=== PATIENT | female | born 2000 | race Hispanic/Latino ===

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

== ENCOUNTER 2022-09-14 04:56 | Inpatient (IN) | payer OTHER ==
[~2022-09-14 04:56] MED LIST: BUTORPHANOL 1 MG/ML INJ IV PRN; PROMETHAZINE INJ 25 MG/ML AMP IM PRN; Ringers Lactate 1,000 ML IV PRN; Ringers Lactate 1,000 ML IV SCH
[2022-09-14] MEDS ORDERED: CARBOPROST TROME 250 MCG/ML IM PRN (05:00)
[2022-09-14] MEDS ORDERED: OXYTOCIN/LR 20 UNIT/1,000 ML BAG IV SCH ×2 (05:00→12:00)
[2022-09-14] MEDS ORDERED: PENICILLIN 5 MU in NA CHLORIDE 0.9% 100 ML IV ONE (05:00)
[2022-09-14] MEDS ORDERED: METHYLERGONOVINE 0.2MG/ML AMP IM PRN (05:00)
--- OUTSIDE RECORDS SUMMARY | 2022-09-14 05:02 | XMS REPORT | Continuity of Care Document ---
:2000 Author Organization [facility] t Address [address] [place] [address] Care Team Providers Name Role Phone Alysa Montaño PA-C Primary Care Physician [phone] ALYSA MONTAÑO Attending Clinician Unavailable Nurse, Debbie Guillen Attending Clinician Unavailable Alysa Montaño PA-C Attending Clinician RENEE STAPLES Attending Clinician Unavailable Doctor Unassigned, [place] Attending Clinician Unavailable Willie Murguia MD Attending Clinician Renee Staples MD Attending Clinician 2, [facility] Attending Clinician Unavailable Migdalia Cabezas Attending Clinician Pob, [facility] Main Attending Clinician Unavailable ALICE GARRETT Attending Clinician Unavailable Alice Nicholson Attending Clinician LIONEL PENN Attending Clinician Unavailable SEGUN MCDUFFIE III Attending Clinician Unavailable Jesus ALVAREZ, Cindy Mosquera Attending Clinician Unavailable Shirley Ga MD Attending Clinician SHIRLEY GA Attending Clinician Unavailable JOSE ROSS Attending Clinician Unavailable Jose Dawkins B Attending Clinician SHASHANK YEUNG Attending Clinician Unavailable IWLLIE DE LEON Attending Clinician Unavailable WILLIE MURGUIA Attending Clinician Unavailable Itz Aguirre MD Attending Clinician WILLIE DE LEON Admitting Clinician Unavailable Payers Payer Name Policy Type Policy Number Effective Date Expiration Date Kilo SAL [id number] 2017 HEALTH 00:00:00 Problems Condition Condition Condition Status Onset Resolution Last Treating Co mments Source Name Details Category Date Date Treatment Clinician Date Encounter Encounter Disease Active Uni vers for for 02-11 ity [place] of other 00 Me dical normal normal Branch in first in first trimester trimester 8 weeks 8 weeks Disease Active Univers gestation gestation 02-11 ity of of of 00:00: [place] 00 [facility] Obesity Obesity Disease Active Univers affecting affecting 6 [place] 00 Med[place] l trimester trimester Bran ch Nausea and Nausea and Disease Active U nivers vomiting vomiting 02-11 ity of during during 00:00: [place] 00 [facility] 12 weeks 12 weeks Disease Active Unive rs gestation gestation 02-11 ity of of of 00:00: [place] 00 [facility] Obesity Obesity Disease Active Univers (BMI (BMI 5-18 ity of 30-39.9) 30-39.9) 00:00: [place] 00 [facility] Branch No known No known Disease Unive rs active active ity of problems problems [facility] Allergies, Adverse Reactions, Alerts Allergy Allergy Status Severity Reaction(s) Onset Inactive Treating Comm ents Source Name Type Date Date Clinician NO KNOWN Drug Active Univers ALLERGIE Class ity of S [facility] Social History Social Habit Start Date Stop Date Quantity Comments Source ASSERTION 2021-12-26 [facility] 00:00:00 [facility] Exposure to 2022-08-30 2022-09-09 [facility] (event) Branch Tobacco use and 2022-04-03 2022-04-03 Smokeless tobacco Un iversity of exposure 00:00:00 00:00:00 non-user [facility] Alcohol intake 2022-04-03 2022-04-03 Ex-drinker [facility] 00:00:00 00:00:00 (finding) [facility] Sex Assigned At [birth year] Universit y of 00:00:00 00:00:00 [facility] Smoking Status Start Date Stop Date Source Never smoked tobacco [facility] [place] Medications Ordered Filled Start Stop Current Ordering Indication Dosage Frequency Signature Comments Components Source Medication Medication Date Date Medication? Clinician (SIG) Name Name cetirizine 2021-09 Yes 2.5mg Take 2.5 Un jessica 1 mg/mL 2-21 mL by ity of solution 00:00: mouth in [place] the Medical morning. Branch cetirizine 2021-09 Yes 2.5mg Take 2.5 Un jessica 1 mg/mL 2-21 mL by ity of solution 00:00: mouth in [place] the Medical morning. Branch cetirizine 2021-09 Yes 2.5mg Take 2.5 Un jessica 1 mg/mL 2-21 mL by ity of solution 00:00: mouth in [place] the Medical morning. Branch cetirizine 2021-09 Yes 2.5mg Take 2.5 Un jessica 1 mg/mL 2-21 mL by ity of solution 00:00: mouth in [place] the Medical morning. Branch Yes Take by Bareed[facility] vit 6-01 mouth. ity of no.124/iron 13:06: [place] /folic 29 Medical ( Branch VITAMIN ORAL) Yes Take by [place] vit 6-01 mouth. ity of no.124/iron 13:06: [place] /folic 29 Medical ( Branch VITAMIN ORAL) Yes Take by [place] vit 6-01 mouth. ity of no.124/iron 13:06: [place] /folic 29 Medical ( Branch VITAMIN ORAL) Yes Take by [place] vit 6-01 mouth. ity of no.124/iron 13:06: [place] /folic 29 Medical ( Branch VITAMIN ORAL) Yes Take by [employer] vit 6-01 mouth. ity of no.124/iron 13:06: [place] /folic 29 Medical ( Branch VITAMIN ORAL) Yes Take by [employer] vit 6-01 mouth. ity of no.124/iron 13:06: [place] /folic 29 Medical ( Branch VITAMIN ORAL) Yes Take by [place] vit 6-01 mouth. ity of no.124/iron 13:06: [place] /folic 29 Medical ( Branch VITAMIN ORAL) Yes Take by BareedEE vit 6-01 mouth. ity of no.124/iron 13:06: [place] /folic 29 Medical ( Branch VITAMIN ORAL) Yes Take by [place] vit 6-01 mouth. ity of no.124/iron 13:06: [place] /folic 29 Medical ( Branch VITAMIN ORAL) Yes Take by [employer] vit 6-01 mouth. ity of no.124/iron 13:06: [place] /folic 29 Medical ( Branch VITAMIN ORAL) proMETHazin Yes [id number] 25mg Take 1 Univers e 25 mg 5-18 tablet by ity of tablet 00:00: mouth [place] 00 every 4 Medical (four) Branch hours as needed for Nausea and Vomiting (N/V). proMETHazin 0 Yes [id number] 25mg Take 1 Univers e 25 mg 5-18 tablet by ity of tablet 00:00: mouth [place] 00 every 4 Medical (four) Branch hours as needed for Nausea and Vomiting (N/V). proMETHazin 0 Yes [id number] 25mg Take 1 Univers e 25 mg 5-18 tablet by ity of tablet 00:00: mouth [place] 00 every 4 Medical (four) Branch hours as needed for Nausea and Vomiting (N/V). proMETHazin 0 Yes [id number] 25mg Take 1 Univers e 25 mg 5-18 tablet by ity of tablet 00:00: mouth [place] 00 every 4 Medical (four) Branch hours as needed for Nausea and Vomiting (N/V). proMETHazin 2022-0 Yes [id number] 25mg Take 1 Univers e 25 mg 5-18 tablet by ity of tablet 00:00: mouth [place] 00 every 4 Medical (four) Branch hours as needed for Nausea and Vomiting (N/V). proMETHazin 2022-0 Yes [id number] 25mg Take 1 Univers e 25 mg 5-18 tablet by ity of tablet 00:00: mouth [place] 00 every 4 Medical (four) Branch hours as needed for Nausea and Vomiting (N/V). proMETHazin 2022-0 Yes [id number] 25mg Take 1 Univers e 25 mg 5-18 tablet by ity of tablet 00:00: mouth [place] 00 every 4 Medical (four) Branch hours as needed for Nausea and Vomiting (N/V). proMETHazin 2022-0 Yes [id number] 25mg Take 1 Univers e 25 mg 5-18 tablet by ity of tablet 00:00: mouth [place] 00 every 4 Medical (four) Branch hours as needed for Nausea and Vomiting (N/V). proMETHazin 2-0 Yes [id number] 25mg Take 1 Univers e 25 mg 5-18 tablet by ity of tablet 00:00: mouth [place] 00 every 4 Medical (four) Branch hours as needed for Nausea and Vomiting (N/V). proMETHazin 2022-0 Yes [id number] 25mg Take 1 Univers e 25 mg 5-18 tablet by ity of tablet 00:00: mouth [place] 00 every 4 Medical (four) Branch hours as needed for Nausea and Vomiting (N/V). proMETHazin 2022-0 Yes [id number] 25mg Take 1 Univers e 25 mg 5-18 tablet by ity of tablet 00:00: mouth [place] 00 every 4 Medical (four) Branch hours as needed for Nausea and Vomiting (N/V). VITAMIN B-6 2022-0 Yes 25mg Take 25 mg Univers 25 mg 5-16 by mouth ity of tablet 00:00: every 8 [place] 00 (eight) Medical hours as Branch needed. VITAMIN B-6 2022-0 Yes 25mg Take 25 mg Univers 25 mg 5-16 by mouth ity of tablet 00:00: every 8 [place] 00 (eight) Medical hours as Branch needed. VITAMIN B-6 2022-0 Yes 25mg Take 25 mg Univers 25 mg 5-16 by mouth ity of tablet 00:00: every 8 [place] 00 (eight) Medical hours as Branch needed. VITAMIN B-6 2022-0 Yes 25mg Take 25 mg Univers 25 mg 5-16 by mouth ity of tablet 00:00: every 8 [place] 00 (eight) Medical hours as Branch needed. VITAMIN B-6 2022-0 Yes 25mg Take 25 mg Univers 25 mg 5-16 by mouth ity of tablet 00:00: every 8 [place] 00 (eight) Medical hours as Branch needed. VITAMIN B-6 2022-0 Yes 25mg Take 25 mg Univers 25 mg 5-16 by mouth ity of tablet 00:00: every 8 [place] 00 (eight) Medical hours as Branch needed. VITAMIN B-6 2022-0 Yes 25mg Take 25 mg Univers 25 mg 5-16 by mouth ity of tablet 00:00: every 8 [place] 00 (eight) Medical hours as Branch needed. VITAMIN B-6 2022-0 Yes 25mg Take 25 mg Univers 25 mg 5-16 by mouth ity of tablet 00:00: every 8 [place] 00 (eight) Medical hours as Branch needed. VITAMIN B-6 2022-0 Yes 25mg Take 25 mg Univers 25 mg 5-16 by mouth ity of tablet 00:00: every 8 [place] 00 (eight) Medical hours as Branch needed. VITAMIN B-6 2022-0 Yes 25mg Take 25 mg Univers 25 mg 5-16 by mouth ity of tablet 00:00: every 8 [place] 00 (eight) Medical hours as Branch needed. Pyridoxine 2022-0 Yes [id number] 25mg Take 25 mg Univers 25 mg Lozg 5-15 by mouth ity o f 00:00: every 8 [place] 00 (eight) Medical hours as Branch needed for Nausea and Vomiting (N/V). Pyridoxine 2022-0 Yes [id number] 25mg Take 25 mg Univers 25 mg Lozg 5-15 by mouth ity o f 00:00: every 8 [place] 00 (eight) Medical hours as Branch needed for Nausea and Vomiting (N/V). Pyridoxine 2022-0 Yes [id number] 25mg Take 25 mg Univers 25 mg Lozg 5-15 by mouth ity o f 00:00: every 8 [place] 00 (eight) Medical hours as Branch needed for Nausea and Vomiting (N/V). Pyridoxine 2022-0 Yes [id number] 25mg Take 25 mg Univers 25 mg Lozg 5-15 by mouth ity o f 00:00: every 8 (eight) Medical hours as Branch needed for Nausea and Vomiting (N/V). Pyridoxine 2022-0 Yes [id number] 25mg Take 25 mg Univers 25 mg Lozg 5-15 by mouth ity o f 00:00: every 8 (eight) Medical hours as Branch needed for Nausea and Vomiting (N/V). Pyridoxine 2-0 Yes [id number] 25mg Take 25 mg Univers 25 mg Lozg 5-15 by mouth ity o f 00:00: every 8 (eight) Medical hours as Branch needed for Nausea and Vomiting (N/V). Pyridoxine 2-0 Yes [id number] 25mg Take 25 mg Univers 25 mg Lozg 5-15 by mouth ity o f 00:00: every 8 [place] (eight) Medical hours as Branch needed for Nausea and Vomiting (N/V). Pyridoxine 2-0 Yes [id number] 25mg Take 25 mg Univers 25 mg Lozg 5-15 by mouth ity o f 00:00: every 8 (eight) Medical hours as Branch needed for Nausea and Vomiting (N/V). Pyridoxine 2-0 Yes [id number] 25mg Take 25 mg Univers 25 mg Lozg 5-15 by mouth ity o f 00:00: every 8 (eight) Medical hours as Branch needed for Nausea and Vomiting (N/V). Pyridoxine 2-0 Yes [id number] 25mg Take 25 mg Univers 25 mg Lozg 5-15 by mouth ity o f 00:00: every 8 (eight) Medical hours as Branch needed for Nausea and Vomiting (N/V). Pyridoxine 2022-0 Yes [id number] 25mg Take 25 mg Univers 25 mg Lozg 5-15 by mouth ity o f 00:00: every 8 (eight) Medical hours as Branch needed for Nausea and Vomiting (N/V). cetirizine 2-0 Yes [id number] 2.5mg Take 2.5 Univers 1 mg/mL 5-15 mL by ity of solution 00:00: mouth 00 daily. Medical Branch cetirizine 0 Yes [id number] 2.5mg Take 2.5 Univers 1 mg/mL 5-15 mL by ity of solution 00:00: mouth [place] 00 daily. Medical Branch cetirizine 2021- No [id number] 2.5mg Take 2.5 Univers 1 mg/mL 5-15 12-21 mL by ity of solution 00:00: 00:00 mouth [place] 00 :00 daily. Medical Branch cetirizine 2021- No [id number] 2.5mg Take 2.5 Univers 1 mg/mL 5-15 12-21 mL by ity of solution 00:00: 00:00 mouth [place] 00 :00 daily. Medical Branch cetirizine 2021- No [id number] 2.5mg Take 2.5 Univers 1 mg/mL 5-15 12-21 mL by ity of solution 00:00: 00:00 mouth [place] 00 :00 daily. Medical Branch nystatin 2020-0 Yes [id number] Apply to U nivers 100,000 6-30 area(s) 3 ity of unit/gram 00:00: (three) [place] ointment 00 times Medical daily. Branch nystatin Yes [id number] Apply to U nivers 100,000 6-30 area(s) 3 ity of unit/gram 00:00: (three) [place] ointment 00 times Medical daily. Branch nystatin 2021- No [id number] Apply to Univers 100,000 6-30 12-21 area(s) 3 ity of unit/gram 00:00: 00:00 (three[place]int[place] :00 times Medical daily. Branch nystatin 2021- No [id number] Apply to Univers 100,000 6-30 12-21 area(s) 3 ity of unit/gram 00:00: 00:00 (three[place]int[place] :00 times Medical daily. Branch nystatin 2021- No [id number] Apply to Univers 100,000 6-30 12-21 area(s) 3 ity of unit/gram 00:00: 00:00 (three[place]int[place] :00 times Medical daily. Branch Immunizations Ordered Immunization Filled Immunization Date Status Commen ts Source Name Name HEPATITIS A 2022-09-02 Completed University of 00:00:00 [facility] HEPATITIS A 2022-09-02 Completed University of 00:00:00 [facility] HEPATITIS A 2022-09-02 Completed University of 00:00:00 [facility] HEPATITIS A 2022-09-02 Completed University of 00:00:00 [facility] Proquad 2021-10-31 Completed University of (MMR/VARICELLA) 00:00:00 [facility] HEPATITIS A 2021-10-31 Completed University of 00:00:00 [facility] Pentacel 2021-10-31 Completed University of (dtap,ipv,hib) 00:00:00 [facility] [place] [facility] Pneumococcal 13 2021-10-31 Completed Universit y of Conjugate, PCV13 00:00:00 [facility] dicsd (Prevnar 13) [facility] 2021-10-31 Completed University of (MMR/VARICELLA) 00:00:00 [facility] HEPATITIS A 2021-10-31 Completed University of 00:00:00 [facility] 2021-10-31 Completed University of (dtap,ipv,hib) 00:00:00 [facility] [place] [facility] Pneumococcal 13 2021-10-31 Completed Universit y of Conjugate, PCV13 00:00:00 [facility] (Prevnar 13) [facility] 2021-10-31 Completed University of (MMR/VARICELLA) 00:00:00 [facility] HEPATITIS A 2021-10-31 Completed University of 00:00:00 [facility] Pentacel 2021-10-31 Completed University of (dtap,ipv,hib) 00:00:00 [facility] [place] [facility] Pneumococcal 13 2021-10-31 Completed Universit y of Conjugate, PCV13 00:00:00 [facility] dical (Prevnar 13) [facility] 2021-10-31 Completed University of (MMR/VARICELLA) 00:00:00 [facility] HEPATITIS A 2021-10-31 Completed University of 00:00:00 [facility] Pentmanassasl 2021-10-31 Completed University of (dtap,ipv,hib) 00:00:00 [facility] [place] [facility] Pneumococcal 13 2021-10-31 Completed Universit y of Conjugate, PCV13 00:00:00 [facility] dical (Prevnar 13) Branch Proad 2021-10-31 Completed University of (MMR/VARICELLA) 00:00:00 [facility] HEPATITIS A 2021-10-31 Completed University of 00:00:00 [facility] Pentacel 2021-10-31 Completed University of (dtap,ipv,hib) 00:00:00 [facility] [place] [facility] Pneumococcal 13 2021-10-31 Completed Universit y of Conjugate, PCV13 00:00:00 [facility] dicsd (Prevnar 13) Branch Proad 2021-10-31 Completed University of (MMR/VARICELLA) 00:00:00 [facility] HEPATITIS A 2021-10-31 Completed University of 00:00:00 [facility] 2021-10-31 Completed University of (dtap,ipv,hib) 00:00:00 [facility] [place] [facility] Pneumococcal 13 2021-10-31 Completed Universit y of Conjugate, PCV13 00:00:00 [facility] dical (Prevnar 13) Branch [facility] 2021-03-19 Completed University of (dtap,ipv,hib) 00:00:00 [facility] [place] [facility] Pneumococcal 13 2021-03-19 Completed Universit y of Conjugate, PCV13 00:00:00 [facility] dical (Prevnar 13) Branch ROTAVIRUS 2021-03-19 Completed University of 00:00:00 [facility] Hep B, Adol or Pedi 2021-03-19 Completed Unive rsity of Dosage 00:00:00 [facility] 2021-03-19 Completed University of (dtap,ipv,hib) 00:00:00 [facility] [place] [facility] Pneumococcal 13 2021-03-19 Completed Universit y of Conjugate, PCV13 00:00:00 [facility] dical (Prevnar 13) Branch ROTAVIRUS 2021-03-19 Completed University of 00:00:00 [facility] Hep B, Adol or Pedi 2021-03-19 Completed Unive rsity of Dosage 00:00:00 [facility] 2021-03-19 Completed University of (dtap,ipv,hib) 00:00:00 [facility] [place] [facility] Pneumococcal 13 2021-03-19 Completed Universit y of Conjugate, PCV13 00:00:00 [facility] dical (Prevnar 13) Branch ROTAVIRUS 2021-03-19 Completed University of 00:00:00 [facility] Hep B, Adol or Pedi 2021-03-19 Completed Unive rsity of Dosage 00:00:00 [facility] Pentacel 2021-03-19 Completed University of (dtap,ipv,hib) 00:00:00 [facility] [place] [facility] Pneumococcal 13 2021-03-19 Completed Universit y of Conjugate, PCV13 00:00:00 [facility] dicsd (Prevnar 13) Branch ROTAVIRUS 2021-03-19 Completed University of 00:00:00 [facility] Hep B, Adol or Pedi 2021-03-19 Completed Unive rsity of Dosage 00:00:00 [facility] Pentacel 2021-03-19 Completed University of (dtap,ipv,hib) 00:00:00 [facility] [place] [facility] Pneumococcal 13 2021-03-19 Completed Universit y of Conjugate, PCV13 00:00:00 [facility] dicsd (Prevnar 13) Branch ROTAVIRUS 2021-03-19 Completed University of 00:00:00 [facility] Hep B, Adol or Pedi 2021-03-19 Completed Unive rsity of Dosage 00:00:00 [facility] Pentacel 2021-03-19 Completed University of (dtap,ipv,hib) 00:00:00 [facility] [place] [facility] Pneumococcal 13 2021-03-19 Completed Universit y of Conjugate, PCV13 00:00:00 [facility] dicsd (Prevnar 13) Branch ROTAVIRUS 2021-03-19 Completed University of 00:00:00 [facility] Hep B, Adol or Pedi 2021-03-19 Completed Unive rsity of Dosage 00:00:00 [facility] 2020[facility] Completed University of (dtap,ipv,hib) 00:00:00 [facility] [place] [facility] Pneumococcal 13 2020-12-30 Completed Universit y of Conjugate, PCV13 00:00:00 [facility] dicsd (Prevnar 13) Branch ROTAVIRUS 2020-12-30 Completed University of 00:00:00 [facility] Pentacel 2020-12-30 Completed University of (dtap,ipv,hib) 00:00:00 [facility] [place] [facility] Pneumococcal 13 2020-12-30 Completed Universit y of Conjugate, PCV13 00:00:00 [facility] dical (Prevnar 13) Branch ROTAVIRUS 2020-12-30 Completed University of 00:00:00 [facility] Pentacel 2020-12-30 Completed University of (dtap,ipv,hib) 00:00:00 [facility] [place] [facility] Pneumococcal 13 2020-12-30 Completed Universit y of Conjugate, PCV13 00:00:00 [facility] dical (Prevnar 13) Branch ROTAVIRUS 2020-12-30 Completed University of 00:00:00 [facility] Pentacel 2020-12-30 Completed University of (dtap,ipv,hib) 00:00:00 [facility] [place] [facility] Pneumococcal 13 2020-12-30 Completed Universit y of Conjugate, PCV13 00:00:00 [facility] dical (Prevnar 13) Branch ROTAVIRUS 2020-12-30 Completed University of 00:00:00 [facility] 2020-12-30 Completed University of (dtap,ipv,hib) 00:00:00 [facility] [place] [facility] Pneumococcal 13 2020-12-30 Completed Universit y of Conjugate, PCV13 00:00:00 [facility] dical (Prevnar 13) Branch ROTAVIRUS 2020-12-30 Completed University of 00:00:00 [facility] 2020-12-30 Completed University of (dtap,ipv,hib) 00:00:00 [facility] [place] [facility] Pneumococcal 13 2020-12-30 Completed Universit y of Conjugate, PCV13 00:00:00 [facility] dical (Prevnar 13) Branch ROTAVIRUS 2020-12-30 Completed University of 00:00:00 [facility] 2020-10-22 Completed University of (dtap,ipv,hib) 00:00:00 [facility] [place] [facility] Hep B, Adol or Pedi 2020-10-22 Completed Unive rsity of Dosage 00:00:00 [facility] ROTAVIRUS 2020-10-22 Completed University of 00:00:00 [facility] Pneumococcal 13 2020-10-22 Completed Universit y of Conjugate, PCV13 00:00:00 [facility] dical (Prevnar 13) [place] Pentmanassasl 2020-10-22 Completed University of (dtap,ipv,hib) 00:00:00 [facility] [place] [facility] Hep B, Adol or Pedi 2020-10-22 Completed Unive rsity of Dosage 00:00:00 [facility] ROTAVIRUS 2020-10-22 Completed University of 00:00:00 [facility] Pneumococcal 13 2020-10-22 Completed Universit y of Conjugate, PCV13 00:00:00 [facility] dical (Prevnar 13) Branch Pentacel 2020-10-22 Completed University of (dtap,ipv,hib) 00:00:00 [facility] [place] [facility] Hep B, Adol or Pedi 2020-10-22 Completed Unive rsity of Dosage 00:00:00 [facility] ROTAVIRUS 2020-10-22 Completed University of 00:00:00 [facility] Pneumococcal 13 2020-10-22 Completed Universit y of Conjugate, PCV13 00:00:00 [facility] dical (Prevnar 13) Branch Pentacel 2020-10-22 Completed University of (dtap,ipv,hib) 00:00:00 [facility] [place] [facility] Hep B, Adol or Pedi 2020-10-22 Completed Unive rsity of Dosage 00:00:00 [facility] ROTAVIRUS 2020-10-22 Completed University of 00:00:00 [facility] Pneumococcal 13 2020-10-22 Completed Universit y of Conjugate, PCV13 00:00:00 [facility] dical (Prevnar 13) Branch Pentacel 2020-10-22 Completed University of (dtap,ipv,hib) 00:00:00 [facility] [place] [facility] Hep B, Adol or Pedi 2020-10-22 Completed Unive rsity of Dosage 00:00:00 [facility] ROTAVIRUS 2020-10-22 Completed University of 00:00:00 [facility] Pneumococcal 13 2020-10-22 Completed Universit y of Conjugate, PCV13 00:00:00 [facility] dical (Prevnar 13) Branch Pentacel 2020-10-22 Completed University of (dtap,ipv,hib) 00:00:00 [facility] [place] [facility] Hep B, Adol or Pedi 2020-10-22 Completed Unive rsity of Dosage 00:00:00 [facility] ROTAVIRUS 2020-10-22 Completed University of 00:00:00 [facility] Pneumococcal 13 2020-10-22 Completed Universit y of Conjugate, PCV13 00:00:00 [facility] dical (Prevnar 13) Branch Hep B, Adol or Pedi 2020-08-12 Completed Unive rsity of Dosage 00:00:00 [facility] Branch Hep B, Adol or Pedi 2020-08-12 Completed Unive rsity of Dosage 00:00:00 [facility] Branch Hep B, Adol or Pedi 2020-08-12 Completed Unive rsity of Dosage 00:00:00 [facility] Branch Hep B, Adol or Pedi 2020-08-12 Completed Unive rsity of Dosage 00:00:00 [facility] Branch Hep B, Adol or Pedi 2020-08-12 Completed Unive rsity of Dosage 00:00:00 [facility] Branch Hep B, Adol or Pedi 2020-08-12 Completed Unive rsity of Dosage 00:00:00 [facility] Meningococcal B, OMV 2017-10-20 Completed Univ ersity of 00:00:00 [facility] Meningococcal 2017-10-20 Completed University of Polysaccharide 00:00:00 [place] Medi radu (groups A, C, Y and Branc h W-135) conjugate vaccine (MCV4P) Influenza Virus 2017-10-20 Completed Universit y of Vaccine Quad IM 3+ 00:00:00 [facility] 2017-10-20 Completed Univ ersity of 00:00:00 [facility] Meningococcal 2017-10-20 Completed University of Polysaccharide 00:00:00 [place] [facility] (groups A, C, Y and Branc h W-135) conjugate vaccine (MCV4P) Influenza Virus 2017-10-20 Completed Universit y of Vaccine Quad IM 3+ 00:00:00 [facility] M[facility], OMV 2017-10-20 Completed Univ ersity of 00:00:00 [facility] Meningococcal 2017-10-20 Completed University of Polysaccharide 00:00:00 [place] [facility] (groups A, C, Y and Branc h W-135) conjugate vaccine (MCV4P) Influenza Virus 2017-10-20 Completed Universit y of Vaccine Quad IM 3+ 00:00:00 [facility] M[facility], OMV 2017-10-20 Completed Univ ersity of 00:00:00 [facility] Meningococcal 2017-10-20 Completed University of Polysaccharide 00:00:00 [place] [facility] (groups A, C, Y and Branc h W-135) conjugate vaccine (MCV4P) Influenza Virus 2017-10-20 Completed Universit y of Vaccine Quad IM 3+ 00:00:00 [facility] Meningococcal B, OMV 2017-10-20 Completed Univ ersity of 00:00:00 [facility] Meningococcal 2017-10-20 Completed University of Polysaccharide 00:00:00 [place] [facility] (groups A, C, Y and Branc h W-135) conjugate vaccine (MCV4P) Influenza Virus 2017-10-20 Completed Universit y of Vaccine Quad IM 3+ 00:00:00 [facility] Meningococcal B, OMV 2017-10-20 Completed Univ ersity of 00:00:00 [facility] Meningococcal 2017-10-20 Completed University of Polysaccharide 00:00:00 [place] [facility] (groups A, C, Y and Branc h W-135) conjugate vaccine (MCV4P) Influenza Virus 2017-10-20 Completed Universit y of Vaccine Quad IM 3+ 00:00:00 [facility], OMV 2017-10-20 Completed Univ ersity of 00:00:00 [facility] Meningococcal 2017-10-20 Completed University of Polysaccharide 00:00:00 [place] [facility] (groups A, C, Y and Branc h W-135) conjugate vaccine (MCV4P) Influenza Virus 2017-10-20 Completed Universit y of Vaccine Quad IM 3+ 00:00:00 [facility] M[facility], OMV 2017-10-20 Completed Univ ersity of 00:00:00 [facility] Meningococcal 2017-10-20 Completed University of Polysaccharide 00:00:00 [place] [facility] (groups A, C, Y and Branc h W-135) conjugate vaccine (MCV4P) Influenza Virus 2017-10-20 Completed Universit y of Vaccine Quad IM 3+ 00:00:00 [facility], OMV 2017-10-20 Completed Univ ersity of 00:00:00 [facility] Meningococcal 2017-10-20 Completed University of Polysaccharide 00:00:00 [place] [facility] (groups A, C, Y and Branc h W-135) conjugate vaccine (MCV4P) Influenza Virus 2017-10-20 Completed Universit y of Vaccine Quad IM 3+ 00:00:00 [facility], OMV 2017-10-20 Completed Univ ersity of 00:00:00 [facility] Meningococcal 2017-10-20 Completed University of Polysaccharide 00:00:00 [place] [facility] (groups A, C, Y and Branc h W-135) conjugate vaccine (MCV4P) Influenza Virus 2017-10-20 Completed Universit y of Vaccine Quad IM 3+ 00:00:00 [facility] M[facility], OMV 2017-10-20 Completed Univ ersity of 00:00:00 [facility] Meningococcal 2017-10-20 Completed University of Polysaccharide 00:00:00 [place] [facility] (groups A, C, Y and Branc h W-135) conjugate vaccine (MCV4P) Influenza Virus 2017-10-20 Completed Universit y of Vaccine Quad IM 3+ 00:00:00 [facility] Vital Signs Vital Name Observation Time Observation Value Comments Source Heart rate 2022-09-02 107 /min University 13:42:00 [facility] Body temperature 2022-09-02 37.06 Nikki University 13:42:00 [facility] Respiratory rate 2022-09-02 18 /min University of 13:42:00 [facility] Body height 2022-09-02 83.8 cm University of 13:42:00 [facility] Body weight 2022-09-02 12.928 kg University of 13:42:00 [facility] BMI 2022-09-02 18.40 kg/m2 University of 13:42:00 [facility] Body mass index 2022-09-02 88.55 % University o f (BMI) [Percentile] 13:42:00 [place] [facility] Per age and sex Branch Ueungy-vol-gbzair 2022-09-02 87.38 % University of Per age and sex 13:42:00 [place] [facility] Systolic blood 2022-04-03 111 mm[Hg] University of pressure 18:17:00 [facility] Diastolic blood 2022-04-03 69 mm[Hg] University o f pressure 18:17:00 [facility] Heart rate 2022-04-03 101 /min University of 18:17:00 [facility] Body temperature 2022-04-03 36.78 Nikki University of 18:17:00 [facility] Respiratory rate 2022-04-03 18 /min University of 18:17:00 [facility] Body height 2022-04-03 154.9 cm University of 18:17:00 [facility] Body weight 2022-04-03 78.563 kg University of 18:17:00 [facility] BMI 2022-04-03 32.73 kg/m2 University of 18:17:00 [facility] Systolic blood 2022-03-10 104 mm[Hg] University of pressure 13:38:00 [facility] Diastolic blood 2022-03-10 69 mm[Hg] University o f pressure 13:38:00 [facility] Heart rate 2022-03-10 73 /min University of 13:38:00 [facility] Body temperature 2022-03-10 36.94 Nikki University of 13:38:00 [facility] Body height 2022-03-10 154.9 cm University of 13:38:00 [facility] Body weight 2022-03-10 79.924 kg University of 13:38:00 [facility] BMI 2022-03-10 33.29 kg/m2 University of 13:38:00 [facility] Systolic blood 2022-02-11 109 mm[Hg] University of pressure 18:06:00 [facility] Diastolic blood 2022-02-11 66 mm[Hg] University o f pressure 18:06:00 [facility] Heart rate 2022-02-11 74 /min University of 18:06:00 [facility] Body temperature 2022-02-11 36.78 Nikki University of 18:06:00 [facility] Respiratory rate 2022-02-11 16 /min University of 18:06:00 [facility] Body height 2022-02-11 154.9 cm University of 18:06:00 [facility] Body weight 2022-02-11 80.513 kg University of 18:06:00 [facility] BMI 2022-02-11 33.54 kg/m2 University of 18:06:00 [facility] Heart rate 2022-02-10 122 /min University of 14:35:00 [facility] Body temperature 2022-02-10 37.06 Nikki University of 14:35:00 [facility] Body height 2022-02-10 81.3 cm University of 14:35:00 [facility] Body weight 2022-02-10 10.75 kg weight est. University of 14:35:00 weighed with [facility] Branch BMI 2022-02-10 16.27 kg/m2 University of 14:35:00 [facility] Body mass index 2022-02-10 53.99 % University o f (BMI) [Percentile] 14:35:00 [place] [facility] Per age and sex Branch Oxygen saturation in 2022-02-10 98 /min Univers ity of Arterial blood by 14:35:00 [place] [facility] Pulse oximetry Branch Head 2022-02-10 48.3 cm University of Occipital-frontal 14:35:00 [facility] circumference by Branch Tape measure Head 2022-02-10 75.93 % University of Occipital-frontal 14:35:00 [facility] circumference Branch Percentile Pjznyj-eyu-tzpxlk 2022-02-10 52.54 % University of Per age and sex 14:35:00 [place] [facility] Systolic blood 2022-01-28 108 mm[Hg] [facility] pressure 19:38:00 [facility] Diastolic blood 2022-01-28 71 mm[Hg] University o f pressure 19:38:00 [facility] Heart rate 2022-01-28 92 /min University of 19:38:00 [facility] Body temperature 2022-01-28 36.89 Nikki University of 19:38:00 [facility] Respiratory rate 2022-01-28 18 /min University of 19:38:00 [facility] Body height 2022-01-28 154.9 cm University of 19:38:00 [facility] Body weight 2022-01-28 80.74 kg University of 19:38:00 [facility] BMI 2022-01-28 33.63 kg/m2 University of 19:38:00 [facility] Procedures Procedure Date / Time Performing Clinician Source Performed HEPATITIS A VACCINE 2022-09-02 13:44:00 Alysa Montaño [facility] AUTHORIZATION FOR RELEASE 2022-04-21 05:01:00 Doctor Unamercyigned, [facility] [place] [facility] INSURANCE CORRESPONDENCE 2022-04-03 05:01:00 Doctor Jerome, [facility] POCT URINALYSIS W/O 2022-04-03 00:00:00 Renee Staples [facility] SPECIFIC GRAVITY [facility] SCANNED LAB RESULTS 2022-03-10 05:01:00 Crystal Ocasio [facility] [place] [facility] [facility] [place] POCT URINALYSIS W/O 2022-03-10 00:00:00 Adum, Renee Jo [facility] <14 WEEKS US 2022-02-11 18:22:54 Adum, Renee Rojas [facility] BACKGROUND CHECK COORDINATOR CLINIC ULTRASOUND 2022-02-11 05:01:00 Doctor Unassigned, [facility] [place] [facility] POCT URINALYSIS W/O 2022-02-11 00:00:00 Adum, Renee Osorio [facility] <14 WEEKS US 2022-01-28 22:28:06 Adum, Renee Rojas [facility] URINE DRUG (IMMUNOASSAY) 2022-01-28 21:06:00 Adum, Renee Torres [facility] [place] SCREEN POCT TEST 2022-01-28 00:00:00 Adum, Renee Osorio [facility] POCT URINALYSIS W/O 2022-01-28 00:00:00 Adum, Renee Osorio [facility] Encounters Start End Encounter Admission Attending Care Care Encounter Source Date/Time Date/Time Type Type Clinicians Facility Department ID 2022-09-09 2022-09-09 Nurse Nurse, Debbie Guillen [facility] 1.2.840. [id number] [facility] 08:00:00 08:20:00 Visit Alysa Montaño 350.1.13.10 ity of PEDIATRIC 4.2.7.2.686 [facility] [id number] [address] 2022-09-09 2022-09-09 Outpatient R LAIRD-URIARTE [facility] [id number] Univers 08:00:00 08:00:00 , ALYSA viramontes [facility] 2022-09-02 2022-09-02 [facility] [id number] Univers 07:30:00 08:07:22 , ALYSA viramontes [facility] 2022-09-02 2022-09-02 Office [facility] 1.2.840.114 [id number] [facility] 07:30:00 08:07:22 Visit Alysa 350.1.13.10 it y of PEDIATRIC [place].7.2.686 [place] [facility] [phone] [facility] 225 Branch 2022-08-12 2022-08-12 Outpatient R TREY [facility] [id number] Univers 08:30:00 08:30:00 , ALYSA ity [facility] 2022-05-12 2022-05-12 Outpatient P [facility] [id number] Univers 08:45:00 08:45:00 ity [facility] 2022-05-01 2022-05-01 Outpatient R ADUM, [facility] [id number] Univers 16:15:00 16:15:00 RENEE viramontes [facility] 2022-04-24 2022-04-24 Outpatient R [facility] [id number] Univers 14:00:00 14:00:00 ity [facility] 2022-04-21 2022-04-21 Orders Doctor GREEN 1.2.840.114 [id number] Univers 00:00:00 00:00:00 Only Unassigned, OMAYRA 350.1.13.10 ity [address] [place] [facility] 4.2.7.2.686 Levi as [phone] [facility] 009 [place] 2022-04-03 2022-04-03 Outpatient R ADUM, [facility] [id number] Univers 13:00:00 13:55:50 RENEE viramontes [facility] 2022-04-03 2022-04-03 Routine Fish, Willie [facility] 1.2.840.114 [id number] Univers 13:00:00 13:55:50 Adolimpia, Renee NUNEZ 350.1.13.10 ity of [place].2.[place] [id number] Nh dical [address] 2022-04-03 2022-04-03 Outpatient R ADUM, [facility] [id number] Univers 11:15:00 11:15:00 RENEE viramontes [facility] 2022-04-03 2022-04-03 Orders Doctor GREEN 1.2.840.114 [id number] Univers 00:00:00 00:00:00 Only Unassigned, OMAYRA 350.1.13.[address] [place] [facility] 4.2.7.2.686 Levi as [phone] [address] 2022-03-26 2022-03-26 Telephone Adum, [facility] [id number] Univers 00:00:00 00:00:00 Renee L [place] 350.1.13.10 ity of [facility] 4.2.7.2.686 [place] [phone] Nh dical NAL [address] [facility] 2022-03-23 2022-03-23 Telephone Adum, [facility] [id number] Univers 00:00:00 00:00:00 Renee L [place] 350.1.13.10 ity of [facility] 4.2.[place].2.686 [place] [phone] Nh dical [facility] 134 [facility] 2022-03-10 2022-03-10 Head Bookkeeper 2, Adc Lab [facility] 1.2.840.114 [id number] Univers 09:30:00 09:45:00 Visit Adum, Renee Osorio [place] 350.1.13.10 ity of [facility] 4.2.7.2.686 [place] [phone] [facility] 353 [facility] 2022-03-10 2022-03-10 Outpatient R ADUM, [facility] [id number] Univers 08:30:00 09:21:21 RENEE ity of [facility] 2022-03-10 2022-03-10 Routine Adum, [facility] 1.2.840.114 [id number] Univers 08:30:00 09:21:21 Renee L [place] 350.1.13.10 ity of Visit [place] 4[place]2.7.2.[place] [id number] Nh dic[address] 2022-03-10 2022-03-10 Orders Doctor PETER 1.2.840.114 [id number] Univers 00:00:00 00:00:00 Only Unassigned, OMAYRA 350.1.13.[address] [place] [facility] 4.2.7.2.686 Levi as [id number] [facility] 009 [place] 2022-03-05 2022-03-05 L[facility]iana [facility] 1.2.840.114 [id number] Univers 00:00:00 00:00:00 [facility] 350.1.13.10 it y of [place] 4.2.7.2.686 Levi as PEG?BLEA [id number] Nh silver [address] MEDICAL OFFICE BUILDING 2022-02-11 2022-02-11 Outpatient R ADUM, [facility] [id number] Univers 13:00:00 13:35:36 RENEE viramontes [facility] 2022-02-11 2022-02-11 [facility] [id number] Univers 13:00:00 13:35:36 Renee COELLO 350.1.13.10 ity of Visit WOMEN'S 4.2.7.2.686 [place] [facility] [phone] [facility] 134 Branch 2022-02-11 2022-02-11 Orders Doctor PETER 1.2.840.114 [id number] Univers 00:00:00 00:00:00 Only Unassigned, OMAYRA 350.1.13.[address]y [address] [place] [facility] 4.2.7.2.686 [place] as [phone] [address] 2022-02-10 2022-02-10 Outpatient R [facility] [place] [id number] Univers 09:30:00 10:05:17 , ALYSA viramontes [facility] 2022-02-10 2022-02-10 Office [facility] 1.2.840.114 [id number] Univers 09:30:00 10:05:17 Visit , Alysa COELLO 350.1.13.10 it y of P[place]IATRIC [place].7.2.[place] [id number] [facility] [address] 2022-02-10 2022-02-10 Outpatient R [facility] [place] [id number] Univers 09:30:00 10:05:17 ALYSA [facility] 2022-01-30 2022-01-30 Outpatient R [facility] [id number] Univers 10:15:00 10:15:00 ity of [facility] 2022-01-30 2022-01-30 Outpatient R [facility] [id number] Univers 10:15:00 10:15:00 ity of [facility] 2022-01-28 2022-01-28 Head Bookkeeper Monie, Adc Lab Main [facility] 1.2.8 40.114 [id number] Univers 16:45:00 17:00:00 Visit ScottolimpiaRenee 350.1.13.10 ity of [place].2.[place] [phone] Nh dical NAL 353 [facility] 2022-01-28 2022-01-28 Outpatient R PATRICIA [facility] [id number] Univers 14:30:00 16:15:30 RENEE ity [facility] 2022-01-28 2022-01-28 Outpatient R PATRICIA [facility] [id number] Univers 14:30:00 16:15:30 RENEE ity [facility] 2022-01-28 2022-01-28 Initial Adolimpia, [facility] 1.2.840.114 [id number] Univers 14:30:00 16:15:30 Renee NUNEZ 350.1.13.10 ity of Visit [place].2.[place] [phone] Nh dical NAL 134 [facility] 2022-01-28 2022-01-28 Orders Doctor PETER 1.2.840.114 [id number] Univers 00:00:00 00:00:00 Only Unassigned, OMAYRA 350.1.13.[address] [place] [facility] 4.2.7.2.686 Levi as [phone] [address] 2022-01-25 2022-01-25 Outpatient R TAMI [facility] [id number] Univers 20:00:00 20:07:25 ALICE ity o f [facility] 2022-01-25 2022-01-25 Urgent GreenMigdalia [facility] 1.2.840.114 [id number] Univers 20:00:00 20:07:25 Alice Medel [facility] 350.1.13.10 ity of [facility] 4.2.7.2.686 [place] as PEG?BLEA [id number] [address] MEDICAL OFFICE BUILDING 2022-01-25 2022-01-25 Urgent Migdalia Hernandez [facility] 1.2.840.114 [id number] Univers 19:40:00 20:00:00 Alice Medel [facility] 350.1.13.10 ity of [place] 4.2.7.2.686 Levi as PEG?BLEA [id number] [address] MEDICAL OFFICE [facility] 2022-01-25 2022-01-25 Outpatient R [facility] [id number] Univers 19:40:00 19:40:00 ALICE viramontes o [facility] 2021-11-24 2021-11-24 Outpatient R [facility] [id number] Univers 14:00:00 14:24:10 LIONEL israelmaye [facility] 2021-11-22 2021-11-22 Outpatient R [facility] [id number] Univers 09:40:00 09:40:00 SEGUN [facility] 2021-11-19 2021-11-19 Letter PETER Lee 1.2.840.114 [id number] Univers 00:00:00 00:00:00 (Out) Cindy CUTLER 350.1.13.10 it y of [facility] 4.2.7.2.686 Levi as [phone] [facility] 019 Branch 2021-11-18 2021-11-18 Outpatient R [facility] [id number] Univers 18:40:00 15:24:33 LIONEL viramontes [facility] 2021-11-03 2021-11-03 Kristopher Ga [facility] YADI 1.2.840.114 [id number] Univers 00:00:00 00:00:00 Shirley COELLO 350.1.13.10 ity [place] P[place]IATR[place] [id number] [facility] [address] 2021-10-31 2021-10-31 Outpatient R SURY [facility] [id number] Univers 10:00:00 11:28:42 SHIRLEY woodmaye [facility] 2021-10-31 2021-10-31 Office Sury [facility] [place] 1.2.840.114 [id number] Univers 10:00:00 11:28:42 Visit Shirley COELLO 350.1.13.10 ity of PEDIATRIC 4.2.7.2.686 [place] [facility] [phone] [facility] [address] 2021-10-31 2021-10-31 Orders Doctor PETER 1.2.840.114 [id number] Univers 00:00:00 00:00:00 Only Unassigned, OMAYRA 350.1.13.10 ity [address] [place] [facility] 4.2.7.2.686 Levi [phone] [facility] 009 Branch 2021-09-12 2021-09-12 Emergency [facility] [id number] Univers 01:27:00 03:32:00 JOSE [facility] 2021-09-12 2021-09-12 Emergency [facility] 1.2.840.114 [id number] Univers 01:27:00 03:32:00 Jose NUNEZ 350.1.13.10 i ty [facility] 4.2.7.2.686 [facility] [id number] [facility] 084 Branch 2021-08-22 2021-08-22 Outpatient R TREY [facility] [id number] Univers 07:50:00 07:50:00 , ALYSA maye [facility] 2021-08-11 2021-08-11 Outpatient R TREY [facility] [id number] Univers 13:10:00 13:10:00 , ALYSA viramontes [facility] 2021-05-29 2021-05-29 Outpatient R LUCY [facility] [id number] Univers 09:40:00 09:40:00 ana m ROWLEY [facility] 2021-05-13 2021-05-14 Emergency WILLIE CRUZ [id number] [facility] 03:37:00 07:40:00 2021-03-25 2021-03-25 Outpatient R WILLIE MURGUIA [facility] [id number] Univers 15:30:00 15:30:00 ity [facility] 2021-03-19 2021-03-19 Nurse Nurse, Debbie Guillen [facility] 1.2.840. 114 [id number] Univers 09:54:27 10:14:27 Visit Itz Aguirre 350.1.13.10 ity of Pediatric [facility].2.7.2.686 [id number] [address] 2021-03-19 2021-03-19 Outpatient R [facility] [id number] Univers 10:00:00 10:00:00 ity [facility] 2021-03-12 2021-03-12 Office [facility] 1.2.840.114 [id number] [facility] 10:16:48 11:07:54 Visit , Alysa Coello 350.1.13.10 it y of Pediatric 4.2.7.2.686 [facility] [id number] [address] 2021-03-12 2021-03-12 Outpatient R LAIRD-URIARTE [facility] [id number] Univers 09:30:00 09:30:00 , ALYSA [facility] 2021-03-03 2021-03-03 Outpatient R LAIRD-URIARTE [facility] [id number] Univers 09:30:00 09:30:00 , [facility] 2020-12-30 2020-12-30 Office [facility] 1.2.840.114 [id number] Univers 09:31:28 10:09:10 Visit , Alysa Coello 350.1.13.10 it y of Pediatric 4.2.7.2.686 [facility] [id number] [address] 2020-12-30 2020-12-30 Outpatient [facility] [id number] Univers 09:30:00 09:30:00 , ALYSA viramontes [facility] 2020-12-18 2020-12-18 Outpatient [facility] [id number] Univers 10:10:00 10:10:00 , ALYSA ana m [facility] 2020-12-05 2020-12-05 Outpatient R GA [facility] [id number] Univers 15:00:00 15:00:00 SHIRLEY viramontes [facility] 2020-12-05 2020-12-05 Office Sury [facility] 1.2.840.114 [id number] Univers 13:25:03 13:56:14 Visit Shirley Coello 350.1.13.10 ity of Pediatric 4.2.7.2.686 Te [facility] [phone] [address] Results Test Description Test Time Test Comments Results Result Comments Source POCT URINALYSIS W/O SPECIFIC GRAVITY 2022-04-03 18:17:00 Test Item Value Reference Range Interpretation Comme nts POCT PH U (test code = 3254) n/a 5-8 POCT U LEUK EST (test code = 3263) n/a Negative - Negative POCT U NIT (test code = 3262) n/a Negative - Negative POCT U PROT (test code = 3259) negative Negative - Negative POCT U GLU (test code = 3256) negative Negative - Negative POCT U KETONE (test code = 3258) n/a Negative - Negative POCT U BLD (test code = 3257) n/a Negative - Negative [facility]/O SPECIFIC [id number] 13:35:00 Test Item Value Reference Range Interpretation Comments POCT PH U (test code = 3254) n/a 5-8 POCT U LEUK EST (test code = n/a Negative - Negative 3263) POCT U NIT (test code = 3262) n/a Negative - Negative POCT U PROT (test code = 3259) Negative Negative - Negative POCT U GLU (test code = 3256) normal Negative - Negative POCT U KETONE (test code = 3258) n/a Negative - Negative POCT U BLD (test code = 3257) n/a Negative - Negative [facility]/O SPECIFIC [id number] 18:07:00 Test Item Value Reference Range Interpretation Comments POCT PH U (test code = 3254) n/a 5-8 POCT U LEUK EST (test code = n/a Negative - Negative 3263) POCT U NIT (test code = 3262) n/a Negative - Negative POCT U PROT (test code = 3259) negative Negative - Negative POCT U GLU (test code = 3256) negative Negative - Negative POCT U KETONE (test code = 3258) n/a Negative - Negative POCT U BLD (test code = 3257) n/a Negative - Negative [facility] SPECIFIC [id number] 20:29:00 Test Item Value Reference Range Interpretation Comments POCT PH U (test code = 3254) n/a 5-8 POCT U LEUK EST (test code = 3263) n/a Negative - Negative POCT U NIT (test code = 3262) n/a Negative - Negative POCT U PROT (test code = 3259) neg Negative - Negative POCT U GLU (test code = 3256) neg Negative - Negative POCT U KETONE (test code = 3258) n/a Negative - Negative POCT U BLD (test code = 3257) n/a Negative - Negative [facility] [id number] 20:28:00 Test Item Value Reference Range Interpretation Comments POCT PREG (test code = 1605) Positive On board controls acceptable with C Yes Line (test code = 3574) POCT PREG LOT # (test code = 3575) POCT PREG TEST DATE (test code = 3576) [facility]
[2022-09-14 06:39] VITALS: BMI 36.4
--- NOTE | 2022-09-14 07:20 | PREOPHP ---
Date of Admission: 09/14/2022 History Of Present Illness: A 22-year-old, 3, para 2, at 39 plus 2, comes in for elective in duction. Full discussion prior to admission. Family History: Noncontributory. Past Medical History: The patient had liposuction in 2020. No sexual. No STDs. Allergies: NO ALLERGIES. Medications: No medications prior to admission noted. vitamins. Social History: Does not smoke. Physical Examination: HEENT: Clear. Pupils equal, round, reactive to light and accommodation. Conjunctivae well perfused . No oral, lingual, or buccal lesions. Chest and Lungs: Clear. Heart: Without murmurs, thrills, heaves, or rubs. Breasts: Without masses. Abdomen: Term size. Extremities: Clear without edema, cyanosis, or clubbing. Assessment And Plan: She is 2.5 to 3, still somewhat posterior, 50% effaced, baby well applied. Rup ture of membranes, clear fluid. Labor talk given. The patient will be going natural, anticipate mor e active labor as the day progresses. She is beta strep positive and therefore already started on penicillin. She is Rh positive, immune to rubella, and COVID testing is pending. NATALY/CALLI Voice ID: [id number]
[2022-09-14 07:31] LABS: Specific Gravity 1.014 (1.005-1.030); Urine Bacteria <20 /HPF (<20); Urine Bilirubin NEGATIVE (Negative); Urine Blood 1+ (Negative); Urine Clarity Turbid (Clear); Urine Color Colorless (Yellow); Urine Glucose NEGATIVE (Negative); Urine Mucus Slight /HPF (None Seen); Urine Protein TRACE (Negative); Urine RBC <5 /HPF (None Seen); Urine Urobilinogen Normal (Normal)
[2022-09-14 07:34] LABS: Absolute Lymphocytes (CBC) 1.9 K/uL (0.7-4.9); Lymphocytes % 35.3 % (15.3-44.8); MCV 79.2 fL (80-100); MPV 10.4 fL (7.6-11.3); RBC Red Blood Cell Count 3.04 M/uL (3.86-4.86)
[2022-09-14 07:40] LABS: SARS-CoV-2 Antigen Rapid Res Negative (Negative)
[2022-09-14] MEDS ORDERED: PENICILLIN 2.5 MU in NA CHLORIDE 0.9% 100 ML IV SCH ×2 (09:00→10:00)
[2022-09-14] MEDS ORDERED: LIDOCAINE 1% MPF 30 ML VIAL ONE (09:12)
[2022-09-14] MEDS ORDERED: Ringers Lactate 1,000 ML IV ONE (09:52)
[2022-09-14] MEDS ORDERED: DIPHENHYDRAMINE 25 MG TAB/CAP PO PRN (11:16)
[2022-09-14] MEDS ORDERED: ACETAMINOPHEN 500 MG TAB PO PRN (11:16)
[2022-09-14] MEDS ORDERED: DOCUSATE NA/SENNA CONC 1 TAB PO PRN (11:16)
[2022-09-14] MEDS ORDERED: Oxycodone HCl/Acetaminophen 1 TAB TAB PO PRN (11:16)
[2022-09-14] MEDS ORDERED: BISACODYL 10 MG RECTAL SUPP PR PRN (11:16)
[2022-09-14] MEDS: Oxycodone HCl/Acetaminophen 1 TAB TAB PO PRN (11:43)
--- NOTE | 2022-09-14 12:05 | OP ---
Surgeon: Benson Mccain MD Indications: This is a 22-year-old 3, para 2, 39 plus 1 noted to have a significant anemia o n admission. Admits not taking vitamins . Approximately 3 cm, rupture of membran es. FHT is normal and reactive. Procedure In Detail: Patient went to a good active labor pattern. Used Lamaze breathing techniques to best advantage. Second stage of about 15 minutes or less. Spontaneous vaginal delivery of 9 poun ds 3 ounce male . Loose nuchal cord x1. Apgars 9 and 9. No episiotomy. No lacerations worth y of suturing. Schultze delivery of the placenta was inspected and noted to be intact and normal. H eavily calcified. Estimated blood loss 300 cc. Patient is given 0.2 mg of Methergine prophylactical ly and will be given Methergine orally as well to prevent any type of significant lochia. She was gi vargas penicillin x2 during the labor, she was strep positive. Tolerated all procedures well. Final Diagnoses: Term intrauterine 39 weeks and 2 days, significant anemia on admission, l abor induction, vaginal delivery, penicillin prophylaxis. NBC/MODL Voice ID: [id number] Report ID: [id number]
[2022-09-14] MEDS: METHYLERGONOVINE 0.2 MG TAB PO SCH ×3 (12:15→20:49)
[2022-09-14] MEDS: IBUPROFEN 600 MG TAB PO PRN (16:22)
[2022-09-15] MEDS: IBUPROFEN 600 MG TAB PO PRN ×2 (00:08→12:47)
[2022-09-15] MEDS: METHYLERGONOVINE 0.2 MG TAB PO SCH (00:08)
[2022-09-15] MEDS: Oxycodone HCl/Acetaminophen 1 TAB TAB PO PRN ×2 (01:01→06:26)
[2022-09-15 02:24] LABS: RPR (Rapid Plasma Reagin) NON-REACT (NON-REACT)
[2022-09-15] MEDS ORDERED: Ringers Lactate 1,000 ML IV ONE (03:41)
--- NOTE | 2022-09-15 07:39 | DS ---
Kim Lacey is a 22-year-old 3, para 2, 39 weeks 2 days, elective induction. Delivered chidi ckly of a 9 pounds 3 ounce male infant, Apgars 9 and 9. No episiotomy. No lacerations worthy of sut uring. Schultze delivery of the placenta. Less than 300 cc blood loss. Noted to be anemic on admis nacho with admission hemoglobin of 7.7, completely asymptomatic, was beta strep positive, received 2 d oses of penicillin during her labor. , afebrile, ambulating, voiding. Lochia is normal. She will be dismissed later today to report back to my office somewhere between 3 and 6 weeks postpar onel to report any temperature elevation of 100 degrees or greater, severe pain, heavy bleeding, or an y other type of abnormalities. She will begin iron therapy twice a day for the entire per iod and we will check her hemoglobin in the office when she comes in. She was offered a Tdap shot du ring the , declined it, but now wants it that will be administered before she beau ves. Rh positive, immune to Rubella. No other significant lab noted. She was given Methergine in t he period and lochia is scant at this point. Final Diagnoses: Term intrauterine . Labor induction. Vaginal delivery at 39 weeks 2 days . Maternal anemia on admission. Strep positive. Penicillin prophylaxis. Tdap to be administered prior to dismissal. Flu shot has been offered several times also. NATALY/CALLI Voice ID: [id number] Report ID: [id number]
[2022-09-15 08:19] VITALS: BP 111/69; TEMP 97.1
[2022-09-15] MEDS ORDERED: TDAP (DIPHTH,PERTUSS(ACELL),TET VAC) 0.5 ML VIAL IMVAC ONE ×2 (10:26→11:54)
[2022-09-15] MEDS ORDERED: IBUPROFEN 200 MG TAB PO ONE (12:32)
== END 2022-09-15 14:00 | disposition home or self-care (01) | DRG 806 ==
LOC: 2ND-WC 04:56
PROVIDERS: ADMIT Specialist; ATTEND Specialist
PROC: 10E0XZZ Delivery of Products of Conception, External Approach (ICD-10-PCS; principal; 2022-09-14)
DX: O99.824 Streptococcus B carrier state complicating childbirth (principal); O36.0930 Maternal care for other rhesus isoimmunization, third trimester, not applicable or unspecified; Z37.0 Single live birth; O99.02 Anemia complicating childbirth; O69.81X0 Labor and delivery complicated by cord around neck, without compression, not applicable or unspecified; Z23 Encounter for immunization; Z3A.39 39 weeks gestation of pregnancy; Z20.822 Contact with and (suspected) exposure to COVID-19
CPT/HCPCS: 36415; 81001; 85025; 86592; 86850; 86900; 86901; 87811; J0595; J2001; J2210; J2540; J2550; J2590; J7120

== ENCOUNTER 2023-08-10 10:37 | Emergency (ER) | payer SELFPAY ==
--- OUTSIDE RECORDS SUMMARY | 2023-08-10 10:42 | XMS REPORT | Continuity of Care Document ---
:2000 Author Organization [facility] t Address [address] [place] [address] Care Team Providers Name Role Phone Pcp, Patient Does Not Have A Primary Care Physician [phone] [email or web address] Attending Clinician Unavailable Odilia Lim MD Attending Clinician CHLOÉ MOLINA Attending Clinician Unavailable Chloé Molina MD Attending Clinician Visit, [facility] Dermatology Nurse Attending Clinician Unavailable Troy Jim MD Attending Clinician TROY JIM Attending Clinician Unavailable NAYELI ARGUETA Attending Clinician Unavailable Nayeli Argueta MD Attending Clinician Doctor Unassigned, [place] Attending Clinician Unavailable RENEE STAPLES Attending Clinician Unavailable Willie Murguia MD Attending Clinician Renee Staples MD Attending Clinician 2, [facility] Attending Clinician Unavailable Pob, [facility] Main Attending Clinician Unavailable Migdalia Cabezas Attending Clinician Alice Nicholson Attending Clinician ALICE NOBLE Attending Clinician Unavailable WILLIE MURGUIA Attending Clinician Unavailable [email or web address] Admitting Clinician Unavailable Payers Payer Name Policy Type Policy Number Effective Date Expiration Date Kilo SAL [id number] 2017 HEALTH 00:00:00 Problems Condition Condition Condition [...] gestation 02-11 ity of of of 00:00: [place] 00 [facility] Obesity Obesity Disease Active Univers affecting affecting 02-11 [place] Med[place] l trimester trimester Bran ch Nausea and Nausea and Disease Active U nivers vomiting vomiting 02-11 ity of during during 00:00: [place] 00 [facility] 12 weeks 12 weeks Disease Active Unive rs gestation gestation 02-11 ity of of of 00:00: [place] 00 [facility] Obesity Obesity Disease Active Univers (BMI (BMI 5-18 ity of 30-39.9) 30-39.9) 00:00: [address] Allergies, Adverse Reactions, Alerts Allergy Allergy Status Severity Reaction(s) Onset Inactive Treating Comm ents Source Name Type Date Date Clinician NO KNOWN Drug Active Univers ALLERGIE Class ity of S [facility] Social History Social Habit Start Date Stop Date Quantity Comments Source ASSERTION 2021-12-26 University of 00:00:00 [facility] Sexual orientation Univer sity of [facility] History of Social 2023-02-24 2023-02-24 Univers ity of function 00:00:00 00:00:00 [facility] Exposure to 2023-01-31 2023-02-10 Not sure [facility] SARS-CoV-2 (event) 00:00:00 08:58:00 [facility] Tobacco use and 2022-04-03 2022-04-03 Smokeless Universit y of exposure 00:00:00 00:00:00 tobacco non-user [facility] Alcohol intake 2022-04-03 2022-04-03 Ex-drinker [facility] 00:00:00 00:00:00 (finding) [facility] Sex Assigned At [birth year] Universit y of 00:00:00 00:00:00 [facility] Smoking Status Start Date Stop Date Source Never smoked tobacco [facility] Medications Ordered Filled Start Stop Current Ordering Indication Dosage Frequency Signature Comments Components Source Medication Medication Date Date Medication? Clinician (SIG) Name Name Yes Take by Univer s vit 6-01 mouth. ity of no.124/iron 13:06: [place] /folic 29 Medical ( Branch VITAMIN ORAL) Yes Take by Univer s vit 6-01 mouth. ity of no.124/iron 13:06: [place] /folic 29 Medical ( Branch VITAMIN ORAL) Yes Take by Univer s vit 6-01 mouth. ity of no.124/iron 13:06: [place] /folic 29 Medical ( Branch VITAMIN ORAL) Yes Take by Univer s vit 6-01 mouth. ity of no.124/iron 13:06: [place] /folic 29 Medical ( Branch VITAMIN ORAL) Yes Take by Univer s vit 6-01 mouth. ity of no.124/iron 13:06: [place] /folic 29 Medical ( Branch VITAMIN ORAL) Yes Take by Univer s vit 6-01 mouth. ity of no.124/iron 13:06: [place] /folic 29 Medical ( Branch VITAMIN ORAL) Yes Take by Univer s vit 6-01 mouth. ity of no.124/iron 13:06: [place] /folic 29 Medical ( Branch VITAMIN ORAL) Yes Take by Univer s vit 6-01 mouth. ity of no.124/iron 13:06: [place] /folic 29 Medical ( Branch VITAMIN ORAL) Yes Take by Univer s vit 6-01 mouth. ity of no.124/iron 13:06: [place] /folic 29 Medical ( Branch VITAMIN ORAL) Yes Take by Univer s vit 6-01 mouth. ity of no.124/iron 13:06: [place] /folic 29 Medical ( Branch VITAMIN ORAL) Yes Take by IPICOer s vit 6-01 mouth. ity of no.124/iron 13:06: [place] /folic 29 Medical ( Branch VITAMIN ORAL) 0 Yes Take by IPICOer s vit 6-01 mouth. ity of no.124/iron 13:06: [place] /folic 29 Medical ( Branch VITAMIN ORAL) 0 Yes Take by IPICOer s vit 6-01 mouth. ity of no.124/iron 13:06: [place] /folic 29 Medical ( Branch VITAMIN ORAL) Yes Take by IPICOer s vit 6-01 mouth. ity of no.124/iron 13:06: [place] /folic 29 Medical ( Branch VITAMIN ORAL) Yes Take by IPICOer s vit 6-01 mouth. ity of no.124/iron 13:06: [place] /folic 29 Medical ( Branch VITAMIN ORAL) Yes Take by IPICOer s vit 6-01 mouth. ity of no.124/iron 13:06: [place] /folic 29 Medical ( Branch VITAMIN ORAL) Yes Take by IPICOer s vit 6-01 mouth. ity of no.124/iron 13:06: [place] /folic 29 Medical ( Branch VITAMIN ORAL) 0 Yes Take by IPICOer s vit 6-01 mouth. ity of no.124/iron 13:06: [place] /folic 29 Medical ( Branch VITAMIN ORAL) Yes Take by IPICOer s vit 6-01 mouth. ity of no.124/iron 13:06: [place] /folic 29 Medical ( Branch VITAMIN ORAL) proMETHazin Yes [id number] 25mg Take 1 Univers e 25 mg 5-18 tablet by ity of tablet 00:00: mouth [place] 00 every 4 Medical (four) Branch hours as needed for Nausea and Vomiting (N/V). proMETHazin Yes [id number] 25mg Take 1 Univers e 25 mg 5-18 tablet by ity of tablet 00:00: mouth [place] 00 every 4 Medical (four) Branch hours as needed for Nausea and Vomiting (N/V). proMETHazin 2022-0 Yes [id number] 25mg Take 1 Univers e 25 mg 5-18 tablet by ity of tablet 00:00: mouth [place] 00 every 4 Medical (four) Branch hours as needed for Nausea and Vomiting (N/V). proMETHazin 2-0 Yes [id number] 25mg Take 1 Univers e 25 mg 5-18 tablet by ity of tablet 00:00: mouth [place] 00 every 4 Medical (four) Branch hours as needed for Nausea and Vomiting (N/V). proMETHazin 2021-0 Yes [id number] 25mg Take 1 Univers e 25 mg 5-18 tablet by ity of tablet 00:00: mouth [place] 00 every 4 Medical (four) Branch hours as needed for Nausea and Vomiting (N/V). proMETHazin 2021-0 Yes [id number] 25mg Take 1 Univers e 25 mg 5-18 tablet by ity of tablet 00:00: mouth [place] 00 every 4 Medical (four) Branch hours as needed for Nausea and Vomiting (N/V). proMETHazin 2021-0 Yes [id number] 25mg Take 1 Univers e 25 mg 5-18 tablet by ity of tablet 00:00: mouth [place] 00 every 4 Medical (four) Branch hours as needed for Nausea and Vomiting (N/V). proMETHazin 2021-0 Yes [id number] 25mg Take 1 Univers e 25 mg 5-18 tablet by ity of tablet 00:00: mouth [place] 00 every 4 Medical (four) Branch hours as needed for Nausea and Vomiting (N/V). proMETHazin 2-0 Yes [id number] 25mg Take 1 Univers e 25 mg 5-18 tablet by ity of tablet 00:00: mouth [place] 00 every 4 Medical (four) Branch hours as needed for Nausea and Vomiting (N/V). proMETHazin 2-0 Yes [id number] 25mg Take 1 Univers e 25 mg 5-18 tablet by ity of tablet 00:00: mouth [place] 00 every 4 Medical (four) Branch hours as needed for Nausea and Vomiting (N/V). proMETHazin 2022-0 Yes [id number] 25mg Take 1 Univers e 25 mg 5-18 tablet by ity of tablet 00:00: mouth [place] 00 every 4 Medical (four) Branch hours as needed for Nausea and Vomiting (N/V). proMETHazin 2-0 Yes [id number] 25mg Take 1 Univers e 25 mg 5-18 tablet by ity of tablet 00:00: mouth [place] 00 every 4 Medical (four) Branch hours as needed for Nausea and Vomiting (N/V). proMETHazin 2021-0 Yes [id number] 25mg Take 1 Univers e 25 mg 5-18 tablet by ity of tablet 00:00: mouth [place] 00 every 4 Medical (four) Branch hours as needed for Nausea and Vomiting (N/V). proMETHazin 2021-0 Yes [id number] 25mg Take 1 Univers e 25 mg 5-18 tablet by ity of tablet 00:00: mouth [place] 00 every 4 Medical (four) Branch hours as needed for Nausea and Vomiting (N/V). proMETHazin 2021-0 Yes [id number] 25mg Take 1 Univers e 25 mg 5-18 tablet by ity of tablet 00:00: mouth [place] 00 every 4 Medical (four) Branch hours as needed for Nausea and Vomiting (N/V). proMETHazin 2021-0 Yes [id number] 25mg Take 1 Univers e 25 mg 5-18 tablet by ity of tablet 00:00: mouth [place] 00 every 4 Medical (four) Branch hours as needed for Nausea and Vomiting (N/V). proMETHazin 2021-0 Yes [id number] 25mg Take 1 Univers e 25 mg 5-18 tablet by ity of tablet 00:00: mouth [place] 00 every 4 Medical (four) Branch hours as needed for Nausea and Vomiting (N/V). proMETHazin 2021-0 Yes [id number] 25mg Take 1 Univers e 25 mg 5-18 tablet by ity of tablet 00:00: mouth [place] 00 every 4 Medical (four) Branch hours as needed for Nausea and Vomiting (N/V). proMETHazin 2021-0 Yes [id number] 25mg Take 1 Univers e 25 mg 5-18 tablet by ity of tablet 00:00: mouth [place] 00 every 4 Medical (four) Branch hours as needed for Nausea and Vomiting (N/V). proMETHazin 2022-0 Yes [id number] 25mg Take 1 Univers e 25 mg 5-18 tablet by ity of tablet 00:00: mouth [place] 00 every 4 Medical (four) Branch hours as needed for Nausea and Vomiting (N/V). VITAMIN B-6 2021-0 Yes 25mg Take 25 mg Univers 25 [...] hours as Branch needed. Pyridoxine 2022-0 Yes [id number] 25mg Take 25 mg Univers 25 mg Lozg 5-15 by mouth ity o f 00:00: every 8 [place] 00 (eight) Medical hours as Branch needed for Nausea and Vomiting (N/V). Pyridoxine 2022-0 Yes [id number] 25mg Take 25 mg Univers 25 mg Lozg 5-15 by mouth ity o f 00:00: every 8 [place] 00 (eight) Medical hours as Branch needed for Nausea and Vomiting (N/V). Pyridoxine 2022-0 Yes [id number] 25mg Take 25 mg Univers 25 mg Lozg 5-15 by mouth ity o f 00:00: every 8 [place] 00 (eight) Medical hours as Branch needed for Nausea and Vomiting (N/V). Pyridoxine 2022-0 Yes [id number] 25mg Take 25 mg Univers 25 mg Lozg 5-15 by mouth ity o f 00:00: every 8 (eight) Medical hours as Branch needed for Nausea and Vomiting (N/V). Pyridoxine 2022-0 Yes [id number] 25mg Take 25 mg Univers 25 mg Lozg 5-15 by mouth ity o f 00:00: every 8 (eight) Medical hours as Branch needed for Nausea and Vomiting (N/V). Pyridoxine 2022-0 Yes [id number] 25mg Take 25 mg Univers 25 mg Lozg 5-15 by mouth ity o f 00:00: every 8 (eight) Medical hours as Branch needed for Nausea and Vomiting (N/V). Pyridoxine 2022-0 Yes [id number] 25mg Take 25 mg Univers 25 mg Lozg 5-15 by mouth ity o f 00:00: every 8 (eight) Medical hours as Branch needed for Nausea and Vomiting (N/V). Pyridoxine 2022-0 Yes [id number] 25mg Take 25 mg Univers 25 mg Lozg 5-15 by mouth ity o f 00:00: every 8 (eight) Medical hours as Branch needed for Nausea and Vomiting (N/V). Pyridoxine 2-0 Yes [id number] 25mg Take 25 mg Univers 25 mg Lozg 5-15 by mouth ity o f 00:00: every 8 00 (eight) Medical hours as Branch needed for Nausea and Vomiting (N/V). Pyridoxine 2022-0 Yes [id number] 25mg Take 25 mg Univers 25 mg Lozg 5-15 by mouth ity o f 00:00: every 8 (eight) Medical hours as Branch needed for Nausea and Vomiting (N/V). Pyridoxine 2022-0 Yes [id number] 25mg Take 25 mg Univers 25 mg Lozg 5-15 by mouth ity o f 00:00: every 8 (eight) Medical hours as Branch needed for Nausea and Vomiting (N/V). Pyridoxine 2022-0 Yes [id number] 25mg Take 25 mg Univers 25 mg Lozg 5-15 by mouth ity o f 00:00: every 8 [place] 00 (eight) Medical hours as Branch needed for Nausea and Vomiting (N/V). Pyridoxine 2022-0 Yes [id number] 25mg Take 25 mg Univers 25 mg Lozg 5-15 by mouth ity o f 00:00: every 8 [place] 00 (eight) Medical hours as Branch needed for Nausea and Vomiting (N/V). Pyridoxine 2022-0 Yes [id number] 25mg Take 25 mg Univers 25 mg Lozg 5-15 by mouth ity o f 00:00: every 8 [place] 00 (eight) Medical hours as Branch needed for Nausea and Vomiting (N/V). Pyridoxine 2-0 Yes [id number] 25mg Take 25 mg Univers 25 mg Lozg 5-15 by mouth ity o f 00:00: every 8 [place] 00 (eight) Medical hours as Branch needed for Nausea and Vomiting (N/V). Pyridoxine 2-0 Yes [id number] 25mg Take 25 mg Univers 25 mg Lozg 5-15 by mouth ity o f 00:00: every 8 [place] 00 (eight) Medical hours as Branch needed for Nausea and Vomiting (N/V). Pyridoxine 2-0 Yes [id number] 25mg Take 25 mg Univers 25 mg Lozg 5-15 by mouth ity o f 00:00: every 8 [place] 00 (eight) Medical hours as Branch needed for Nausea and Vomiting (N/V). Pyridoxine 2-0 Yes [id number] 25mg Take 25 mg Univers 25 mg Lozg 5-15 by mouth ity o f 00:00: every 8 [place] 00 (eight) Medical hours as Branch needed for Nausea and Vomiting (N/V). Pyridoxine 2-0 Yes [id number] 25mg Take 25 mg Univers 25 mg Lozg 5-15 by mouth ity o f 00:00: every 8 [place] 00 (eight) Medical hours as Branch needed for Nausea and Vomiting (N/V). Pyridoxine 2022-0 Yes [id number] 25mg Take 25 mg Univers 25 mg Lozg 5-15 by mouth ity o f 00:00: every 8 [place] 00 (eight) Medical hours as Branch needed for Nausea and Vomiting (N/V). Immunizations Ordered Immunization Filled Date Status Comments Sour ce Name Immunization Name Meningococcal B, OMV 2017-10-20 Completed [facility] of 00:00:00 [place] [facility] Meningococcal 2017-10-20 Completed University of Polysaccharide 00:00:00 [place] Medi radu (groups A, C, Y and Branc h W-135) conjugate vaccine (MCV4P) Influenza Virus 2017-10-20 Completed Universit y of Vaccine Quad IM 3+ 00:00:00 [facility] Meningococcal B, OMV 2017-10-20 Completed Univ ersity of 00:00:00 [facility] Meningococcal 2017-10-20 Completed University of Polysaccharide 00:00:00 [place] Medi radu (groups A, C, Y and Branc h W-135) conjugate vaccine (MCV4P) Influenza Virus 2017-10-20 Completed Universit y of Vaccine Quad IM 3+ 00:00:00 [facility] Meningococcal B, OMV 2017-10-20 Completed Univ ersity of 00:00:00 [facility] Meningococcal 2017-10-20 Completed University of Polysaccharide 00:00:00 [place] Medi radu (groups A, C, Y and Branc h W-135) conjugate vaccine (MCV4P) Influenza Virus 2017-10-20 Completed Universit y of Vaccine Quad IM 3+ 00:00:00 [facility] Meningococcal B, OMV 2017-10-20 Completed Univ ersity of 00:00:00 [facility] Meningococcal 2017-10-20 Completed University of Polysaccharide 00:00:00 [place] Medi radu (groups A, C, Y and Branc h W-135) conjugate vaccine (MCV4P) Influenza Virus 2017-10-20 Completed Universit y of Vaccine Quad IM 3+ 00:00:00 [facility] Meningococcal B, OMV 2017-10-20 Completed Univ ersity of 00:00:00 [facility] Meningococcal 2017-10-20 Completed University of Polysaccharide 00:00:00 [place] Medi radu (groups A, C, Y and Branc h W-135) conjugate vaccine (MCV4P) Influenza Virus 2017-10-20 Completed Universit y of Vaccine Quad IM 3+ 00:00:00 [facility] Meningococcal B, OMV 2017-10-20 Completed Univ ersity of 00:00:00 [facility] Meningococcal 2017-10-20 Completed University of Polysaccharide 00:00:00 [place] Medi radu (groups A, C, Y and Branc h W-135) conjugate vaccine (MCV4P) Influenza Virus 2017-10-20 Completed Universit y of Vaccine Quad IM 3+ 00:00:00 [facility] Meningococcal B, OMV 2017-10-20 Completed Univ ersity of 00:00:00 [facility] Meningococcal 2017-10-20 Completed University of Polysaccharide 00:00:00 [place] Medi radu (groups A, C, Y and Branc h W-135) conjugate vaccine (MCV4P) Influenza Virus 2017-10-20 Completed Universit y of Vaccine Quad IM 3+ 00:00:00 [facility] Meningococcal B, OMV 2017-10-20 Completed Univ ersity of 00:00:00 [facility] Meningococcal 2017-10-20 Completed University of Polysaccharide 00:00:00 [place] Medi radu (groups A, C, Y and Branc h W-135) conjugate vaccine (MCV4P) Influenza Virus 2017-10-20 Completed Universit y of Vaccine Quad IM 3+ 00:00:00 [facility] Meningococcal B, OMV 2017-10-20 Completed Univ ersity of 00:00:00 [facility] Meningococcal 2017-10-20 Completed University of Polysaccharide 00:00:00 [place] Medi radu (groups A, C, Y and Branc h W-135) conjugate vaccine (MCV4P) Influenza Virus 2017-10-20 Completed Universit y of Vaccine Quad IM 3+ 00:00:00 [facility] Meningococcal B, OMV 2017-10-20 Completed Univ ersity of 00:00:00 [facility] Meningococcal 2017-10-20 Completed University of Polysaccharide 00:00:00 [place] Medi radu (groups A, C, Y and Branc h W-135) conjugate vaccine (MCV4P) Influenza Virus 2017-10-20 Completed Universit y of Vaccine Quad IM 3+ 00:00:00 [facility] Meningococcal B, OMV 2017-10-20 Completed Univ ersity of 00:00:00 [facility] Meningococcal 2017-10-20 Completed University of Polysaccharide 00:00:00 [place] Medi radu (groups A, C, Y and Branc h W-135) conjugate vaccine (MCV4P) Influenza Virus 2017-10-20 Completed Universit y of Vaccine Quad IM 3+ 00:00:00 [facility] Meningococcal B, OMV 2017-10-20 Completed Univ ersity of 00:00:00 [facility] Meningococcal 2017-10-20 Completed University of Polysaccharide 00:00:00 [place] Medi radu (groups A, C, Y and Branc h W-135) conjugate vaccine (MCV4P) Influenza Virus 2017-10-20 Completed Universit y of Vaccine Quad IM 3+ 00:00:00 [facility] Meningococcal B, OMV 2017-10-20 Completed Univ ersity of 00:00:00 [facility] Meningococcal 2017-10-20 Completed University of Polysaccharide 00:00:00 [place] Medi radu (groups A, C, Y and Branc h W-135) conjugate vaccine (MCV4P) Influenza Virus 2017-10-20 Completed Universit y of Vaccine Quad IM 3+ 00:00:00 [facility] Meningococcal B, OMV 2017-10-20 Completed Univ ersity of 00:00:00 [facility] Meningococcal 2017-10-20 Completed University of Polysaccharide 00:00:00 [place] Medi radu (groups A, C, Y and Branc h W-135) conjugate vaccine (MCV4P) Influenza Virus 2017-10-20 Completed Universit y of Vaccine Quad IM 3+ 00:00:00 [facility] Meningococcal B, OMV 2017-10-20 Completed Univ ersity of 00:00:00 [facility] Meningococcal 2017-10-20 Completed University of Polysaccharide 00:00:00 [place] Medi radu (groups A, C, Y and Branc h W-135) conjugate vaccine (MCV4P) Influenza Virus 2017-10-20 Completed Universit y of Vaccine Quad IM 3+ 00:00:00 [facility] Meningococcal B, OMV 2017-10-20 Completed Univ ersity of 00:00:00 [facility] Meningococcal 2017-10-20 Completed University of Polysaccharide 00:00:00 [place] Medi radu (groups A, C, Y and Branc h W-135) conjugate vaccine (MCV4P) Influenza Virus 2017-10-20 Completed Universit y of Vaccine Quad IM 3+ 00:00:00 [facility] Meningococcal B, OMV 2017-10-20 Completed Univ ersity of 00:00:00 [facility] Meningococcal 2017-10-20 Completed University of Polysaccharide 00:00:00 [place] Medi radu (groups A, C, Y and Branc h W-135) conjugate vaccine (MCV4P) Influenza Virus 2017-10-20 Completed Universit y of Vaccine Quad IM 3+ 00:00:00 [facility] Meningococcal B, OMV 2017-10-20 Completed Univ ersity of 00:00:00 [facility] Meningococcal 2017-10-20 Completed University of Polysaccharide 00:00:00 [place] Medi radu (groups A, C, Y and Branc h W-135) conjugate vaccine (MCV4P) Influenza Virus 2017-10-20 Completed Universit y of Vaccine Quad IM 3+ 00:00:00 [facility] Influenza Virus Unknown Completed Universit y of Vaccine Quad IM 3+ [facility] Meningococcal B, OMV Unknown Completed Univ ersity of [facility] Meningococcal Unknown Completed University of Polysaccharide [place] Medi radu (groups A, C, Y and Branc h W-135) conjugate vaccine (MCV4P) Influenza Virus Unknown Completed Universit y of Vaccine Quad IM 3+ [facility] Meningococcal B, OMV Unknown Completed Univ ersity [facility] Meningococcal Unknown Completed University of Polysaccharide [place] Medi radu (groups A, C, Y and Branc h W-135) conjugate vaccine (MCV4P) Vital Signs Vital Name Observation Time Observation Value Comments Source Body height 2023-02-10 14:11:00 154.9 cm [facility] Systolic blood 2022-04-03 18:17:00 111 mm[Hg] Univer sity of pressure [facility] Diastolic blood 2022-04-03 18:17:00 69 mm[Hg] Unive rsity of [facility] Heart rate 2022-04-03 18:17:00 101 /min [facility] Body temperature 2022-04-03 18:17:00 36.78 Nikki [facility] 2022-04-03 18:17:00 18 /min [facility] Body height 2022-04-03 18:17:00 154.9 cm [facility] Body weight 2022-04-03 18:17:00 78.563 kg [facility] BMI 2022-04-03 18:17:00 32.73 kg/m2 [facility] Systolic blood 2022-03-10 13:38:00 104 mm[Hg] Univer sity of pressure [facility] Diastolic blood 2022-03-10 13:38:00 69 mm[Hg] Unive rsity of pressure [place] [facility] Heart rate 2022-03-10 13:38:00 73 /min Universi ty of [place] [facility] Body temperature 2022-03-10 13:38:00 36.94 Nikki Univ ersity of [place] [facility] Body height 2022-03-10 13:38:00 154.9 cm Universi ty of [place] [facility] Body weight 2022-03-10 13:38:00 79.924 kg Universi ty of [place] [facility] BMI 2022-03-10 13:38:00 33.29 kg/m2 Universi ty of [place] [facility] Systolic blood 2022-02-11 18:06:00 109 mm[Hg] Univer sity of pressure [place] [facility] Diastolic blood 2022-02-11 18:06:00 66 mm[Hg] Unive rsity of pressure [place] [facility] Heart rate 2022-02-11 18:06:00 74 /min Universi ty of [place] [facility] Body temperature 2022-02-11 18:06:00 36.78 Nikki Univ ersity of [place] [facility] Respiratory rate 2022-02-11 18:06:00 16 /min Univ ersity of [place] [facility] Body height 2022-02-11 18:06:00 154.9 cm Universi ty of [place] [facility] Body weight 2022-02-11 18:06:00 80.513 kg Universi ty of [place] [facility] BMI 2022-02-11 18:06:00 33.54 kg/m2 Universi ty of [place] [facility] Systolic blood 2022-01-28 19:38:00 108 mm[Hg] Univer sity of pressure [place] [facility] Diastolic blood 2022-01-28 19:38:00 71 mm[Hg] Unive rsity of pressure [place] [facility] Heart rate 2022-01-28 19:38:00 92 /min Universi ty of [place] [facility] Body temperature 2022-01-28 19:38:00 36.89 Nikki Univ ersity of [place] [facility] Respiratory rate 2022-01-28 19:38:00 18 /min Univ ersity of [place] [facility] Body height 2022-01-28 19:38:00 154.9 cm Universi ty of [place] [facility] Body weight 2022-01-28 19:38:00 80.74 kg Universi ty of [place] [facility] BMI 2022-01-28 19:38:00 33.63 kg/m2 [facility] Procedures Procedure Date / Time Performing Clinician Source Performed ASSIGNMENT OF BENEFITS 2023-02-10 13:57:31 Carloz Ocasio [facility] AUTHORIZATION FOR RELEASE 2022-04-21 05:01:00 Doctor Cano [facility] INSURANCE CORRESPONDENCE 2022-04-03 05:01:00 Doctor Cano [facility] POCT URINALYSIS W/O 2022-04-03 00:00:00 Adum, Renee Osorio [facility] SCANNED LAB RESULTS 2022-03-10 05:01:00 Crystal Ocasio [facility] POCT URINALYSIS W/O 2022-03-10 00:00:00 Adum, Renee Osorio [facility] <14 WEEKS US 2022-02-11 18:22:54 Adum, Renee Rojas [facility] RN OTOLARYNGOLOGY CLINIC ULTRASOUND 2022-02-11 05:01:00 Doctor [facility] POCT URINALYSIS W/O 2022-02-11 00:00:00 Adum, Renee Osorio [facility] <14 WEEKS US 2022-01-28 22:28:06 Adum, Renee Rojas [facility] URINE DRUG (IMMUNOASSAY) 2022-01-28 21:06:00 AdumRenee [facility] nc SCREEN POCT TEST 2022-01-28 00:00:00 AdumRenee [facility] POCT URINALYSIS W/O 2022-01-28 00:00:00 AdumRenee [facility] Encounters Start End Encounter Admission Attending Care Care Encounter Source Date/Time Date/Time Type Type Clinicians Facility Department ID 2023-07-14 2023-07-14 Outpatient [id number] PRIV PRIV [id number] [facility] 00:00:00 00:00:00 [id number] [id number] Medic al 2023-03-20 2023-03-20 Patient Raphael, UNIVERSIT 1.2.840.114 [id number] Univers 00:00:00 00:00:00 Secure Msg Hartley Y HE[facility] 350.1.13.10 [id number] [address] 2023-03-03 2023-03-03 Outpatient R [facility] [id number] Univers 13:00:00 13:00:00 ity of [facility] 2023-02-24 2023-02-24 [facility] [id number] Univers 11:30:00 12:18:44 [facility] 2023-02-24 Office Odilia Lim UNIVERSIT 1.2.840 .114 [id number] Univers 11:30:00 12:18:44 Visit Chloé Molina [facility] 350.1.13.1 0 [place] [id number] [address] 2023-02-16 2023-02-16 Nurse Visit, [facility] Dermatology Nurse UNIVE RSIT 1.2.840.114 [id number] Univers 14:15:00 14:30:00 Visit Troy Jim [facility] HE[facility] 350.1.13 .10 [place] [id number] [address] 2023-02-16 2023-02-16 [facility] [id number] Univers 14:15:00 14:15:00 TROY viramontes [facility] 2023-02-16 2023-02-16 Telephone CAPO LimIT 1.2.840.114 [id number] Univers 00:00:00 00:00:00 Odilia HEALTH 350.1.13.10 i ty [place] [id number] [address] 2023-02-12 2023-02-12 Patient Raphael, UNIVERSIT 1.2.840.114 [id number] Univers 00:00:00 00:00:00 Secure Msg Odilia Y HEALTH 350.1.13.10 [place] [id number] [address] 2023-02-10 2023-02-10 Outpatient R MOERONALDO, [facility] [id number] Univers 09:00:00 10:31:57 NAYELI ity o f [facility] 2023-02-10 2023-02-10 Office Odilia Lim UNIVERSIT 1.2.840 .114 [id number] Univers 09:00:00 10:31:57 Visit Chloé Molina Valerie Y HEALTH 350.1.13.1 0 ity of Nayeli Argueta CLINICS 4.2.7.2.686 [place] [id number] [address] 2023-02-10 2023-02-10 Orders Doctor PETER 1.2.840.114 [id number] Univers 00:00:00 00:00:00 Only Unassigned, OMAYRA 350.1.13.10 ity of [place] [facility] 4.2.7.2.686 Levi as [id number] [address] 2022-05-12 2022-05-12 Outpatient P [facility] [id number] Univers 08:45:00 08:45:00 ity of [facility] 2022-05-01 2022-05-01 Outpatient [facility] [id number] Univers 16:15:00 16:15:00 REENE ity of [facility] 2022-04-24 2022-04-24 Outpatient R [facility] [id number] Univers 14:00:00 14:00:00 ity of [facility] 2022-04-21 2022-04-21 Orders Doctor PETER 1.2.840.114 [id number] Univers 00:00:00 00:00:00 Only Unassigned, OMAYRA 350.1.13.10 ity of [place] [facility] 4.2.7.2.686 Levi as [id number] [address] 2022-04-03 2022-04-03 Outpatient [facility] [id number] Univers 13:00:00 13:55:50 RENEE itmaye of [facility] 2022-04-03 2022-04-03 Routine Fish, Willie [facility] 1.2.840.114 [id number] Univers 13:00:00 13:55:50 Adum, Renee NUNEZ 350.1.13.10 ity of [place] [id number] Hi dical NAL [address] [facility] 2022-04-03 2022-04-03 Outpatient R ADUM, [facility] [id number] Univers 11:15:00 11:15:00 RENEE ity [facility] 2022-04-03 2022-04-03 Orders Doctor PETER 1.2.840.114 [id number] Univers 00:00:00 00:00:00 Only Unassigned, OMAYRA 350.1.13.10 ity of [place] [facility] 4.2.7.2.686 [place] as [id number] [address] 2022-03-26 2022-03-26 Telephone Adum, [facility] [id number] [id number] Univers 00:00:00 00:00:00 Renee NUNEZ 350.1.13.10 it[facility] of [facility] [place] [id number] Hi dical NAL 134 [facility] 2022-03-23 2022-03-23 Telephone Adum, [facility] 1.2.234.543 [id number] Univers 00:00:00 00:00:00 Renee NUNEZ 350.1.13.10 ity of [facility] [place] [id number] Hi dical NAL 134 [facility] 2022-03-10 2022-03-10 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, 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 [facility] 1.2.840.114 [id number] Univers 09:30:00 09:45:00 Visit Adum, Renee NUNEZ 350.1.13.10 ity of [facility] 4[place] [id number] Hi dical NAL 353 [facility] 2022-03-10 2022-03-10 Outpatient R ADUM, [facility] [id number] Univers 08:30:00 09:21:21 RENEE ity [facility] 2022-03-10 2022-03-10 Routine Adum, [facility] 1.2.840.114 [id number] Univers 08:30:00 09:21:21 Rneee Osorio MAYRA 350.1.13.10 ity of [facility] [place] [id number] [address] 2022-03-10 2022-03-10 Orders Doctor PETER 1.2.840.114 [id number] Univers 00:00:00 00:00:00 Only Unassigned, OMAYRA 350.1.13.10 ity of [place] [facility] 4.2.7.2.686 Levi as [id number] [address] 2022-02-11 2022-02-11 Outpatient R ADUM, [facility] [id number] Univers 13:00:00 13:35:36 RENEE ity [facility] 2022-02-11 2022-02-11 Routine Adum, [facility] 1.2.056.955 [id number] Univers 13:00:00 13:35:36 Renee Osorio ALFREDO 350.1.13.10 ity of Visit [facility] [id number] [address] 2022-02-11 2022-02-11 Orders Doctor PETER 1.2.840.114 [id number] Univers 00:00:00 00:00:00 Only Unassigned, OMAYRA 350.1.13.10 ity of [place] [facility] 4.2.7.2.686 Levi as [id number] [address] 2022-01-30 2022-01-30 Outpatient R [facility] [id number] Univers 10:15:00 10:15:00 ity of [facility] 2022-01-30 2022-01-30 Outpatient R [facility] [id number] Univers 10:15:00 10:15:00 ity of [facility] 2022-01-28 2022-01-28 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 Monie, Saray Lab Main [facility] 1.2.8 40.114 [id number] Univers 16:45:00 17:00:00 Visit Renee Staples Jo NUNEZ 350.1.13.10 ity of [facility] 4[place] [id number] Hi dical NAL 353 [facility] 2022-01-28 2022-01-28 Outpatient R ADUM, [facility] [id number] Univers 14:30:00 16:15:30 RENEE ity [facility] 2022-01-28 2022-01-28 Outpatient R ADUM, [facility] [id number] Univers 14:30:00 16:15:30 RENEE ity [facility] 2022-01-28 2022-01-28 Initial Adum, [facility] 1.2.840.114 [id number] Univers 14:30:00 16:15:30 Renee NUNEZ 350.1.13.10 ity of [place] [id number] Hi dical NAL 134 [facility] 2022-01-28 2022-01-28 Orders Doctor PETER 1.2.840.114 [id number] Univers 00:00:00 00:00:00 Only Unassigned, OMAYRA 350.1.13.10 ity of [place] [facility] 4.2.7.2.686 [place] as [id number] [address] 2022-01-25 2022-01-25 Urgent Migdalia Hernandez [facility] 1.2.840.114 [id number] Univers 19:40:00 20:00:00 Care Alice Noble [facility] 350.1.13.10 ity of [place] 4.2.7.2.686 [place] as PEG?BLEA [id number] Hi dical DELGADOEY [address] [facility] 2022-01-25 2022-01-25 Outpatient R TAMI [facility] [id number] Univers 19:40:00 19:40:00 ALICE viramontes o f [facility] 2021-03-25 2021-03-25 Outpatient R WILLIE MURGUIA [facility] [id number] Univers 15:30:00 15:30:00 [facility] Results Test Description Test Time Test Comments [...] code = 3257) n/a Negative - Negative [facility] SPECIFIC [id number] 13:35:00 Test Item Value Reference Range Interpretation [...] code = 3257) n/a Negative - Negative [facility]/O SPECIFIC [id number] 18:07:00 Test Item Value Reference Range Interpretation [...] code = 3257) n/a Negative - Negative [facility]/O SPECIFIC [id number] 20:29:00 Test Item Value Reference Range Interpretation [...] code = 3257) n/a Negative - Negative [facility] [id number] 20:28:00 Test Item Value Reference Range Interpretation Comments POCT PREG (test code = 1605) Positive On board controls acceptable with C Yes Line (test code = 3574) POCT PREG LOT # (test code = 3575) POCT PREG TEST DATE (test code = 3576) [facility]
--- NOTE | 2023-08-10 12:25 | ER ---
Nurse's Notes [facility] Name: Kim Lacey Age: 23 yrs Sex: Female : 2000 Arrival Date: 08/10/2023 Time: 10:37 Bed DIS1 Private MD: Diagnosis: Acute upper respiratory infection, unspecified Presentation: 08/10 11:00 Chief complaint: Patient states: cough, congestion, fever, and body aches x 3 days ago. aa5 11:00 Coronavirus screen: congestion, cough unrelated to allergies. Ebola Screen: Patient aa5 denies travel to an Ebola-affected area in the 21 days before illness onset. Initial Sepsis Screen: Does the patient meet any 2 criteria? No. Patient's initial sepsis screen is negative. Does the patient have a suspected source of infection? No. Patient's initial sepsis screen is negative. Risk Assessment: Do you want to hurt yourself or someone else? Patient reports no desire to harm self or others. Onset of symptoms was 2022. 11:00 Acuity: GITA 4 aa5 11:00 Method Of Arrival: Ambulatory aa5 Historical: - Allergies: 11:25 No Known Allergies; aa5 - Home Meds: 11:25 None [Active]; aa5 - PMHx: 11:25 None; aa5 - PSHx: 11:25 None; aa5 Vital Signs: 11:00 BP 109 / 65; Pulse 88; Resp 16 S; Temp 98.8(TE); Pulse Ox 100% on R/A; Weight 63.5 kg aa5 (R); Height 5 ft. 1 in. (R); 11:00 Body Mass Index 26.45 (63.50 kg, 154.94 cm) aa5 ED Course: 10:38 Patient arrived in ED. rg4 10:39 Whit Coello FNP-C is PHCP. kb 10:39 Abraham Baeza DO is Attending Physician. kb 11:00 Arm band placed on. aa5 11:09 COVID-19 SARS RT PCR Sent. kj1 11:09 Flu Sent. kj1 11:24 Triage completed. aa5 Administered Medications: No medications were administered Outcome: 12:24 Discharge ordered by . kb 12:45 Patient left the ED. iw Signatures: Whit Coello FNP-C FNP-Ckb Williams, Diana, RN RN iw uSjey Aguirre, RN RN aa5 Maddy Leonard4 Whit Coello kj1
--- NOTE | 2023-08-10 12:25 | EDPHYS ---
Physician Documentation [facility] Name: Kim Lacey Age: 23 yrs Sex: Female : 2000 Arrival Date: 08/10/2023 Time: 10:37 Bed DIS1 Private MD: ED Physician Abraham Baeza HPI: 08/10 12:23 This 23 yrs old Female presents to ER via Ambulatory with complaints of Flu kb Symptoms. 12:23 Patient is a 23-year-old female with no medical history who presents for cough, kb congestion, fever and body aches for 3 days.. Historical: - Allergies: 11:25 No Known Allergies; aa5 - Home Meds: 11:25 None [Active]; aa5 - PMHx: 11:25 None; aa5 - PSHx: 11:25 None; aa5 ROS: 12:23 Abdomen/GI: Negative for abdominal pain, nausea, vomiting, diarrhea, and constipation, kb 12:23 Constitutional: Positive for body aches, fever, malaise, 12:23 ENT: Positive for rhinorrhea, sinus congestion, 12:23 Respiratory: Positive for cough, 12:23 All other systems are negative, Exam: 12:23 Constitutional: This is a well developed, well nourished patient who is awake, alert, kb and in no acute distress. Head/Face: Normocephalic, atraumatic. ENT: Moist Mucous membranes Cardiovascular: Regular rate Respiratory: Respirations even and unlabored. No increased work of breathing. Talking in full sentences Skin: Warm, dry with normal turgor. Normal color. MS/ Extremity: Pulses equal, no cyanosis. Neurovascular intact. Full, normal range of motion. Neuro: Awake and alert, GCS 15, oriented to person, place, time, and situation. Moves all extremities. Normal gait. Vital Signs: 11:00 BP 109 / 65; Pulse 88; Resp 16 S; Temp 98.8(TE); Pulse Ox 100% on R/A; Weight 63.5 kg aa5 (R); Height 5 ft. 1 in. (R); 11:00 Body Mass Index 26.45 (63.50 kg, 154.94 cm) aa5 MDM: 10:40 Patient medically screened. kb 12:23 Differential diagnosis: Flu, COVID, URI. Data reviewed: vital signs, nurses notes. I kb considered the following discharge prescriptions or medication management in the emergency department I discussed and recommended Over The Counter medications, Antibiotics: At this time antibiotics are not recommended, Antivirals: At this time, antivirals are not recommended. Test considered but Not performed: X-ray: Chest x-ray considered but lungs clear bilaterally, respirations even and unlabored, oxygen saturation 100% on room air.. Counseling: I had a detailed discussion with the patient and/or guardian regarding the historical points, exam findings, and any diagnostic results supporting the discharge/admit diagnosis, lab results, the need for outpatient follow up, a family practitioner, to return to the emergency department if symptoms worsen or persist or if there are any questions or concerns that arise at home. 08/10 10:44 Order name: Flu; Complete Time: 11:41 kb 08/10 10:44 Order name: COVID-19 SARS RT PCR; Complete Time: 11:48 kb Administered Medications: No medications were administered Disposition: 15:29 I was immediately available on-site in the Emergency Department for consultation in the ms3 care of the patient. Disposition Summary: 08/10/23 12:24 Discharge Ordered Notes: Location: Home kb Condition: Stable kb Diagnosis - Acute upper respiratory infection, unspecified kb Followup: kb - With: Emergency Department - When: As needed - Reason: Worsening of condition Followup: kb - With: Private Physician - When: 2 - 3 days - Reason: Recheck today's complaints, Continuance of care, Re-evaluation by your physician Discharge Instructions: - Discharge Summary Sheet kb - Upper Respiratory Infection, Adult, [id number] kb - Viral Respiratory Infection, [id number] kb Forms: - Medication Reconciliation Form kb - Thank You Letter kb - Antibiotic Education kb - Prescription Opioid Use kb - Patient Portal Instructions kb - Leadership Thank You Letter kb - Work release form iw Prescriptions: - Tessalon Perles 100 mg Oral Capsule - take 1 capsule ORAL route every 8 hours As needed; 15 capsule; Refills: 0, kb Product Selection Permitted Signatures: Dispatcher [employer] Whit Sorenson, Sujey Nava, RN RN aa5 Abraham Baeza, DO DO ms3
[2023-08-10 13:04] VITALS: BP 109/65; TEMP 98.8; O2SAT 100
== END 2023-08-10 12:45 | disposition home or self-care (01) ==
LOC: ER 10:37
DX: J06.9 Acute upper respiratory infection, unspecified (principal); Z11.52 Encounter for screening for COVID-19
CPT/HCPCS: 87635; 87804; 99282